=== PATIENT | female | born 1960 | race Caucasian/White ===

== ENCOUNTER 2020-01-13 10:31 | Emergency (ER) | payer MEDICARE, SELFPAY ==
[2020-01-13 10:31] VITALS: BP 133/76; PULSE 88; RESP 16; TEMP 37.8; O2SAT 96; BMI 24.0
[2020-01-13 10:35] VITALS: O2SAT 96
[2020-01-13 11:02] LABS: Absolute Lymphocyte Count 1.67 X10^3/uL (0.83-4.51); Absolute Neutrophil Count 5.7 X10^3/uL (2.0-7.7); Basophil# 0.07 X10^3/uL; Basophil% 0.8 % (0-1); Eosinophil# 0.06 X10^3/uL; Eosinophils% 0.7 % (0-5); Hematocrit 41.7 % (37-47); Hemoglobin 13.4 g/dL (12.0-15.0); Lymphocyte # 1.67 X10^3/ul (4.0); Lymphocyte % 19.6 % (19-41); Mean Corp Hgb Conc 32.1 g/dL (32-36); Mean Corpuscular Hgb 28.9 pg (27.0-32.0); Mean Corpuscular Volume 89.9 fL (81-99); Mean Platelet Vol. 9.7 fl (6.2-12.0); Monocyte# 1.05 X10^3/uL; Monocyte% 12.3 % (0-10); NRBC Flagged by Analyzer 0 % (0-5); Neutrophil # 5.66 X10^3/uL (2.7-7.7); Neutrophil % 66.2 % (47-70); Platelet Count 227 K/mm3 (150-450); RBC Distribution Width CV 12.5 % (11.6-14.6); RBC Distribution Width SD 41.2 fl (35.1-43.9); Red Blood Count 4.64 M/mm3 (4.2-5.4); White Blood Count 8.5 K/mm3 (4.4-11.0)
[2020-01-13 11:13] LABS: Anion Gap 6 (5-15); BUN 13 mg/dL (7-18); BUN/Creat Ratio 14.3 RATIO (10-20); Calcium,Total 8.8 mg/dL (8.5-10.1); Chloride 105 mmol/L (98-107); Creatinine, Serum 0.91 mg/dL (0.55-1.02); EST Glomerular Filtration Rate 67 mL/min (>60); Est Glom Filt Rate - Afr Amer 81 mL/min (>60); Estimated Creatinine Clearance 64.73 ml/min; Glucose 102 mg/dL (74-106); Potassium 3.9 mmol/L (3.5-5.1); Sodium Level 138 mmol/L (136-145)
[2020-01-13] MEDS: Ibuprofen 600 MG Tablet PO (11:23)
--- NOTE | 2020-01-13 11:38 | RAD_ITS ---
STUDY: X-RAY CHEST REASON FOR EXAM: Female, 59 years old. COUGH, FEVER, SOB; -- H/O CVA, H/O OVARIAN CA TECHNIQUE: Single AP portable view of the chest. COMPARISON: May 04, 2017 FINDINGS: There are monitoring devices. There is ill-defined peripheral opacity in the left mid chest. There is no demonstrated pleural abnormality. Normal size heart. Normal mediastinum and maria dolores. Normal visualized pulmonary arteries. Normal visualized aortic arch and descending thoracic aorta. Normal visualized thoracic spine. Normal visualized ribs, clavicles, and shoulders. There is no demonstrated abnormality of the visualized soft tissue structures of the upper abdomen. RAD/Chest 1 View (Portable) IMPRESSION: Left midlung pneumonia versus mass. Electronically Signed: Taran Goode MD at 11:59 EDT , Service support ,
--- NOTE | 2020-01-13 11:38 | ED.DCSUM_ITS ---
- ER Visit Summary Date of Service: 01/13/20 Chief Complaint: [Fever and cough] History of Present Illness: The patient is a 59 F [presents to the emergency department with 2-day history of headache and fever and dry cough. Patient denies any sore throat or body aches. Patient works as a hotel dining room cashier but denies any known exposures to novel coronavirus. She has had no travel. She denies urinary symptoms. Patient has had fever at home up to 100.8. Patient's past medical history includes prior stroke with some remnant weakness of the right arm. Patient complains of generalized fatigue.] Physical Examination: [HEENT-PERRLA, EOMI. Cranial nerves II through XII grossly intact. TMs clear. Mucous membranes moist. No adenopathy. Cardiovascular-regular rate and rhythm without murmur or ectopy Lungs-clear to auscultation, chest wall stable without crepitus or subcu emphysema Abdomen-normoactive bowel sounds, soft, nontender, no rebound or rigidity, no peritoneal signs. Extremities-intact ?4, normal range of motion, normal pulses, atraumatic] Test Results: [CBC with differential obtained was normal. Chemistries normal.] Influenza was negative. Chest x-ray showed a left midlung pneumonia versus mass. Emergency Department Course and Treatment: [She was treated with Levaquin 750 mg p.o. Given that testing for normal coronavirus is not available at this time to patient's being discharged I cannot rule out coronavirus as the etiology of her symptoms. Patient also advised that she will need follow-up imaging through her primary care physician regarding the left midlung pneumonia versus mass. Patient understands. Patient will be advised to return if increasing shortness of breath or condition worsen anyway.] Treatment Plan: [She advised to self isolate for 2 weeks. Patient to use ibuprofen or Tylenol for fever control. Patient advised to return if increasing shortness of breath. Patient will be treated with Levaquin to treat for possible bacterial pneumonia.] Disposition: [Discharged home in stable condition] Impression: [Pneumonia] This note was generated with [employer] software. It may contain incorrect words, spelling, and punctuation that were not noted in review of the chart prior to signing ED Disposition - Plan for ED Patient: Referrals: Ganesh Villatoro DO [Primary Care Provider] -
[2020-01-13 11:50] LABS: Bacteria 0 SEEN /hpf (None Seen); Mucous, Urine 0 SEEN /hpf (<or=2+); White Blood Cells 0 SEEN /hpf (0-5)
[2020-01-13 11:51] LABS: Color, Urine Yellow (Yellow); Glucose, Dipstick Normal (Normal); Ketone-Dipstick 15 mg/dl (Negative); Leukocyte Esterase-Dipstick 25 /ul (Negative); Nitrite-Dipstick Negative (Negative); Occult Blood-Urine 50 /ul (Negative); Protein-Dipstick Negative (Negative); Urine Bilirubin Dipstick Negative (Negative); Urine Clarity Clear (Clear); Urine Urobilinogen Normal (Normal)
[2020-01-13 11:59] LABS: Red Blood Cells-Urine 0-5 SEEN /hpf (0-5); Squamous Epithelial Cells - UA 0-5 SEEN /hpf (5-10)
--- NOTE | 2020-01-13 12:09 | ED.DEP ---
ED Disposition - Plan for ED Patient: Instructions: Pneumonia Prescriptions: Levofloxacin [Levaquin] 750 mg PO DAILY #7 tab Prescription Printed Referrals: Ganesh Villatoro DO [Primary Care Provider] - 1 Week
[2020-01-13 12:23] VITALS: BP 118/74; PULSE 67; RESP 15; O2SAT 97
[2020-01-13] MEDS: levoFLOXacin 750 MG Tablet PO (12:23)
== END 2020-01-13 12:24 | disposition home or self-care (01) ==
LOC: ED 11:09
PROVIDERS: Emergency Provider Emergency Medicine; PCP Family Medicine
DX: J18.9 Pneumonia, unspecified organism (principal); I69.351 Hemiplegia and hemiparesis following cerebral infarction affecting right dominant side; Z72.0 Tobacco use; Z79.82 Long term (current) use of aspirin; Z79.899 Other long term (current) drug therapy
CPT/HCPCS: 71045; 80048; 81001; 85025; 87040; 87633; 87804; 99285; A4216

== ENCOUNTER 2020-01-17 11:10 | Emergency (ER) | payer MEDICARE, SELFPAY ==
[2020-01-17 11:11] VITALS: BP 126/66; PULSE 103; RESP 19; TEMP 36.7; O2SAT 95; BMI 23.1
--- NOTE | 2020-01-17 11:30 | EKG12_ITS ---
Test Reason : SOB Blood Pressure : / mmHG Vent. Rate : 096 BPM Atrial Rate : 096 BPM P-R Int : 134 ms QRS Dur : 080 ms QT Int : 352 ms P-R-T Axes : 044 047 070 degrees QTc Int : 444 ms Normal sinus rhythm Normal ECG Confirmed by MADI DISLA, ILEANA ([id number]), assignment desk editor MIGUEL ESPINOZA ([id number]) on 01/23/2020 9:09:17 AM Referred By: BOO Confirmed By:FAIZA BARRAZA MD
--- NOTE | 2020-01-17 11:32 | CT_ITS ---
STUDY: CTA CHEST REASON FOR EXAM: Female, 59 years old. SOB, COUGH, NAUSEA X 5 DAYS RADIATION DOSAGE (If Supplied By Facility): CTDIvol = ( 9.62 ) mGy, DLP = ( 311.78 ) mGycm TECHNIQUE: The examination was performed with the intravenous administration of 100 CC ISOVUE 370. Post-processing of the angiographic images was performed, with multiplanar reformation and 3D reconstruction. Individualized dose optimization techniques were used for this CT. COMPARISON: None. FINDINGS: Normal enhancement of the main pulmonary artery and right and left pulmonary arteries. Normal enhancement of the bilateral peripheral pulmonary arteries. There is no demonstrated pulmonary embolism. Normal thoracic aorta and visualized great vessels. There is no demonstrated aortic dissection. Normal heart and pericardium. There are enlarged mediastinal lymph nodes. There are enlarged left hilar lymph nodes. Normal visualized trachea and bronchi. The lungs are well expanded. There is evidence of a 2 cm x 1.4 cm nodular density in the peripheral aspect of the left upper lobe abutting the pleural surface laterally in the major fissure posteriorly. Mild increased markings are seen in the anterior aspect of the right lower lobe abutting the right minor fissure. Normal pleura. Normal chest wall structures. Normal osseous structures. Normal visualized upper abdomen. CT/CTA Chest W/WO Contrast IMPRESSION: Enlarged mediastinal lymph nodes as well as the left hilar lymph nodes with a 2 cm x 1.4 cm peripheral based density in the lateral aspect of the left upper lobe abutting the pleural surface as well as the posterior aspect of the left major fissure. A neoplastic process should be ruled out. Electronically Signed: Pepe Baires, at 13:11 EDT , Service support ,
[2020-01-17] MEDS: INHALER, ASSIST DEVICES 1 EACH SPACER INHALATION (11:48)
--- NOTE | 2020-01-17 11:49 | ED.DCSUM_ITS ---
History of Present Illness Chief Complaint: Shortness of Breath Informant: Patient Narrative: Patient states that last she began to have headache and nausea and a chest discomfort described as a pressure that is sometimes sharp with breathing. She left work and on Wednesday came to the emergency department. She had a chest x-ray that was concerning for a left-sided pneumonia developing versus mass. She states that she has been on Levaquin since Wednesday and has not improved. She had a virtual visit with her doctor today and they suggested she come back to the emergency room. She states that she continues to have the shortness of breath and the chest pain. She states that she is drinking but still feels some dehydration. No fevers. She has a cough that is dry. Past Medical History - Allergies and Home Meds Allergies/Adverse Reactions: Allergies No Known Allergies Allergy (Verified 01/17/20 11:11) Primary Care Physician: Anu Ugarte,Out of [Primary Care Provider] - Surgical History: hysterectomy Smoking Status: Current every day smoker Review of Systems General: Reports: Malaise. Denies: Chills, Fever, Sweats Eyes: Denies: Visual changes - bilaterally, Diplopia ENT: Denies: Rhinorrhea, Sore throat Cardiovascular: Reports: Chest pain. Denies: Palpitations Respiratory: Reports: Dyspnea, Cough, Dyspnea on exertion. Denies: Sputum Gastrointestinal: Reports: Nausea. Denies: Abdominal pain, Vomiting, Diarrhea, Melena, Hematochezia Genitourinary: Denies: Dysuria, Hematuria, Frequency Musculoskeletal: Reports: Myalgias. Denies: Back pain, Extremity Pain Skin: Denies: Rash, Wounds Neurological: Reports: Headache. Denies: Weakness, Numbness Physical Exam Vital Signs/Narrative: Vital Signs Temp Pulse Resp BP Pulse Ox 01/17/20 11:11 98.1 F 103 H 19 H 126/66 H 95 General: Well nourished, Well developed, No Acute Distress Head: Normocephalic, Atraumatic Eyes: Perrl, EOMI ENT: No rhinorrhea, Dry mucous membranes Neck: Supple, Nontender Cardiovascular: Regular rate, No murmurs, Tachycardia Respiratory: No distress, CTA bilaterally, Chest nontender Abdomen: Soft, Nontender, Nondistended, Normal bowel sounds Back: Nontender, Normal Inspection Extremities: Nontender, No edema Skin: Normal color, No rash Neurological: Alert, Oriented x3, Cranial nerves II-XII grossly intact, Normal Strength, Normal Sensation Psychological: Tearful Diagnostic/Tx/Re-eval - Medical Decision Making Patient's basic labs are negative. EKG is a normal sinus rhythm at a rate of 96. CTA of the chest demonstrates no pneumonia. There is no concerning viral pattern. There is however a peripheral lung mass with enlarged mediastinal and left hilar nodes. I discussed the case with Dr. Martinez who will assist in helping arrange biopsy and further care. I called her primary care physician to update them. I will write for some Sunland for pain. This is obviously very distressing for the patient and she was already extremely anxious in light of the pandemic in her mother's health. I will write for some Ativan. ED Disposition - Plan for ED Patient: Disposition: Home or Assisted Living Diagnosis: Lung mass, Chest pain Instructions: ED Chest Pain NonCardiac, Diagnosing and Staging Lung Cancer Prescriptions: Lorazepam [Ativan] 0.5 mg PO TID PRN #9 tab PRN Reason: Anxiety Prescription Printed Hydrocodone Bitart/Apap 5-325 [Sunland 5MG-325MG] 1 tab PO Q6H PRN PRN 3 Days #12 tab PRN Reason: Pain Prescription Printed Referrals: Ilya Martinez MD [STAFF PHYSICIAN] - As soon as possible Additional Instructions: You may use the inhaler 2 puffs every 4 hours as needed for shortness of breath. You need to have a lung biopsy. Dr. Martinez's (a [facility] landscape painter) office will be in contact with you to help arrange this.
[2020-01-17 12:00] VITALS: BP 111/98; PULSE 98; PULSE 99; RESP 19; TEMP 36.7; O2SAT 95; O2SAT 96
[2020-01-17] MEDS: 0.9% Normal Saline 1,000 ML 1000 ML IV (12:05)
[2020-01-17 12:06] LABS: Absolute Lymphocyte Count 2.36 X10^3/uL (0.83-4.51); Absolute Neutrophil Count 5.9 X10^3/uL (2.0-7.7); Basophil# 0.05 X10^3/uL; Basophil% 0.5 % (0-1); Eosinophil# 0.08 X10^3/uL; Eosinophils% 0.9 % (0-5); Hematocrit 41.9 % (37-47); Hemoglobin 13.8 g/dL (12.0-15.0); Lymphocyte # 2.36 X10^3/ul (4.0); Lymphocyte % 25.7 % (19-41); Mean Corp Hgb Conc 32.9 g/dL (32-36); Mean Corpuscular Hgb 29.2 pg (27.0-32.0); Mean Corpuscular Volume 88.6 fL (81-99); Mean Platelet Vol. 9.1 fl (6.2-12.0); Monocyte% 7.6 % (0-10); NRBC Flagged by Analyzer 0 % (0-5); Neutrophil # 5.93 X10^3/uL (2.7-7.7); Neutrophil % 64.8 % (47-70); Platelet Count 277 K/mm3 (150-450); RBC Distribution Width CV 12.2 % (11.6-14.6); RBC Distribution Width SD 39.6 fl (35.1-43.9); Red Blood Count 4.73 M/mm3 (4.2-5.4); White Blood Count 9.2 K/mm3 (4.4-11.0)
[2020-01-17 12:08] VITALS: O2SAT 95
[2020-01-17 12:24] LABS: ALB/GLOB Ratio 0.8 RATIO (0.9-2.4); AST(SGOT) 20 U/L (15-37); Alanine Aminotransfer ALT/SGPT 40 U/L (13-56); Albumin, Serum 3.3 g/dL (3.2-5.0); Alkaline Phosphatase 109 U/L (45-117); Anion Gap 7 (5-15); BUN 13 mg/dL (7-18); BUN/Creat Ratio 13.1 RATIO (10-20); Calcium,Total 8.7 mg/dL (8.5-10.1); Chloride 102 mmol/L (98-107); EST Glomerular Filtration Rate 61 mL/min (>60); Est Glom Filt Rate - Afr Amer 73 mL/min (>60); Estimated Creatinine Clearance 58.91 ml/min; Glucose 89 mg/dL (74-106); Potassium 3.4 mmol/L (3.5-5.1); Protein, Total 7.3 g/dL (6.4-8.2); Sodium Level 137 mmol/L (136-145)
[2020-01-17 13:00] VITALS: BP 164/110; PULSE 94; RESP 19; TEMP 36.7; O2SAT 98
--- NOTE | 2020-01-17 13:33 | NURSING ---
LEFT MESSAGE ON [facility]. DR GANT WANTS TO TALK TO HER DOCTOR
== END 2020-01-17 14:10 | disposition home or self-care (01) ==
PROVIDERS: Emergency Provider Emergency Medicine
DX: R91.8 Other nonspecific abnormal finding of lung field (principal); R07.89 Other chest pain; R51 Headache; R11.0 Nausea; F17.200 Nicotine dependence, unspecified, uncomplicated; Z79.82 Long term (current) use of aspirin; Z79.899 Other long term (current) drug therapy
CPT/HCPCS: 71275; 80053; 83605; 84484; 85025; 85610; 85730; 93005; 94640; 96360; 99284; J7030; Q9967; A4216

== ENCOUNTER → 2020-01-23 10:41 | Outpatient (CLI) | payer MEDICARE, SELFPAY ==
[2020-01-19 13:33] VITALS: BMI 23.1
[2020-01-23 12:22] LABS: Anion Gap 5 (5-15); BUN 19 mg/dL (7-18); BUN/Creat Ratio 18.1 RATIO (10-20); Calcium,Total 9.5 mg/dL (8.5-10.1); Chloride 103 mmol/L (98-107); Creatinine, Serum 1.05 mg/dL (0.55-1.02); EST Glomerular Filtration Rate 57 mL/min (>60); Est Glom Filt Rate - Afr Amer 69 mL/min (>60); Glucose 107 mg/dL (74-106); Sodium Level 139 mmol/L (136-145)
== END ==
PROVIDERS: PCP Student in an Organized Health Care Education/Training Program; Referring Provider Student in an Organized Health Care Education/Training Program; Visit Provider Student in an Organized Health Care Education/Training Program
DX: E87.6 Hypokalemia (principal); R11.0 Nausea
CPT/HCPCS: 36415; 80048

== ENCOUNTER → 2020-03-19 13:06 | Outpatient (CLI) | payer MEDICARE, SELFPAY ==
[2020-01-19 13:33] VITALS: BMI 23.1
--- NOTE | 2020-03-21 08:13 | PFT ---
INTRODUCTION: The patient is a 59-year-old female that presents for pulmonary function studies secondary to a diagnosis of dyspnea. Respiratory therapy reports good patient effort. Bronchodilators were used during testing. INTERPRETATION: Forced expiration spirometry demonstrates no evidence of a large airways obstructive ventilatory defect. There was no significant response to aerosolized bronchodilators. Spirograms are of good quality and plateau normally. Body plethysmography was performed and reveals lung volumes to be within normal limits. Diffusing capacity by single breath CO is also within normal limits. IMPRESSION: Grossly normal pulmonary function studies.
--- OUTSIDE RECORDS SUMMARY | 2020-07-21 14:21 | XMS RPT_ITS | CCD ---
:1960 External Reference #:[id number] Author Organization [facility] Care Team Providers Name Role Phone Unavailable Unavailable Unavailable Results Result Name Value Range Unit Interpretation Flag Date Location tsh on 2020-04-30 TSH Qn 2.15 0.36-3.74 mcIU/mL Normal 04-30-2020 [facility] ([place]) ([address]39) Comment: Performed By: #### CMP, GFR #### [place] [address] #### CBC, ADIFF, ANEU #### [address] [address] ft4 on 2020-04-30 Free T4 [Mass/Vol] 1.08 0.76-1.46 ng/dL Normal 04-30-2020 [facility] ([place]) (0000 0) Comment: Performed By: #### CMP, GFR #### [place] [address] #### CBC, ADIFF, ANEU #### [address] [address] cmp on 2020-04-30 Albumin [Mass/Vol] 3.8 3.5-5.0 G/dL Normal 04-30-2020 [facility] ([place]) ([address]) Comment: Performed By: #### CMP, GFR #### [place] [address] #### CBC, ADIFF, ANEU #### [address] [address] Albumin/Globulin [Mass 1.3 1.1-2.5 ratio Normal 020 [facility] ([place]) (78965) Comment: Performed By: #### CMP, GFR #### [place] [address] #### CBC, ADIFF, ANEU #### [address] [address] ALP [Catalytic activity/Vol] 103 40-135 U/L Normal 0 04-30-2020 [facility] ([place]) ([address]308) Comment: Performed By: #### CMP, GFR #### [place] [address] #### CBC, ADIFF, ANEU #### [address] [address] ALT [Catalytic activity/Vol] 26 10-35 U/L Normal 0 04-30-2020 [facility]) (0000 0) Comment: Performed By: #### CMP, GFR #### [place] [address] #### CBC, ADIFF, ANEU #### [address] [address] AST [Catalytic activity/Vol] 15 10-40 U/L Normal 0 04-30-2020 [facility] ([place]) (0000 0) Comment: Performed By: #### CMP, GFR #### [place] [address] #### CBC, ADIFF, ANEU #### [address] [address] Bili Total 0.3 0.2-1.0 mg/dL Normal 04-30-2020 [facility] ([place]) ([address]) Comment: Result Comment: Use of this assay is not recommended for patients undergoing treatment with eltrombopag d ue to the potential for falsely elevated results. Performed By: #### CMP, GFR #### [place] [address] #### CBC, ADIFF, ANEU #### [address] [address] Calcium [Mass/Vol] 9.4 8.4-10.2 mg/dL Normal 04-30-2020 [facility] ([place]) (0000 0) Comment: Performed By: #### CMP, GFR #### [address] [address] #### CBC, ADIFF, ANEU #### [address] [address] Chloride [Moles/Vol] 107 98-107 mmol/L Normal 0 [facility] ([place]) (0000 0) Comment: Performed By: #### CMP, GFR #### [place] [address] #### CBC, ADIFF, ANEU #### [address] [address] CO2 [Moles/Vol] 28 22-29 mmol/L Normal 04-30-2020 [facility] ([place]) (73995) Comment: Performed By: #### CMP, GFR #### [place] [address] #### CBC, ADIFF, ANEU #### [address] [address] Creatinine [Mass/Vol] 0.97 0.55-1.02 mg/dL Normal 04-30-20 20 [facility] ([place]) ([address]) Comment: Performed By: #### CMP, GFR #### [place] [address] #### CBC, ADIFF, ANEU #### [address] [address] Electrolyte Balance 9.0 mEq/L Normal 04-30-2020 [facility] ([place]) ([address]120) Comment: Performed By: #### CMP, GFR #### [place] [address] #### CBC, ADIFF, ANEU #### [address] [address] Globulin (S) [Mass/Vol] 2.9 G/dL Normal 2019 [facility] ([place]) ([address]16) Comment: Performed By: #### CMP, GFR #### [address] [address] #### CBC, ADIFF, ANEU #### [address] [address] Glucose [Mass/Vol] 75 70-105 mg/dL Normal 04-30-2020 [facility] ([place]) ([address]08) Comment: Performed By: #### CMP, GFR #### [place] [address] #### CBC, ADIFF, ANEU #### [address] [address] Potassium [Moles/Vol] 4.2 3.5-5.1 mmol/L Normal 04-30-20 [facility] ([place]) (0000 0) Comment: Performed By: #### CMP, GFR #### [place] [address] #### CBC, ADIFF, ANEU #### [address] [address] Protein [Mass/Vol] 6.7 6.4-8.2 G/dL Normal 04-30-2020 [facility] ([place]) (16029) Comment: Performed By: #### CMP, GFR #### [place] [address] #### CBC, ADIFF, ANEU #### [address] [address] Sodium [Moles/Vol] 144 136-145 mmol/L Normal 04-30-2020 [facility] ([place]) (0000 0) Comment: Performed By: #### CMP, GFR #### [place] [address] #### CBC, ADIFF, ANEU #### [address] [address] Urea nitrogen [Mass/Vol] 15 7-18 mg/dL Normal 04-30 [facility] ([place]) (0000 0) Comment: Performed By: #### CMP, GFR #### [address] [address] #### CBC, ADIFF, ANEU #### [address] [address] Urea nitrogen/Creatinine [Mass 15 7-27 ratio Normal 04-30-2020 [facility]] [facility] ([place]) ([address]) Comment: Performed By: #### CMP, GFR #### [place] [address] #### CBC, ADIFF, ANEU #### [address] [address] a1c on 2020-04-30 HbA1c (Bld) [Mass 5.6 4.3-6.4 % Normal 04-30-2020 A [facility] fraction] ([place]) (0000 0) Comment: Performed By: #### CMP, GFR #### [place] [address] #### CBC, ADIFF, ANEU #### [address] [address] .gfr on 2020-04-30 GFR 71 ml/min/1.73sqm Normal 04-04 [facility] ([place]) (0000 0) Comment: Result Comment: GFR Population mean for Afri can Ugandan, Non- Americans Ages 20-29 = 116 mL/min/1.73 sq.m. Ages 30-39 = 107 mL/min/1.73 sq.m. Ages 40-49 = 99 mL/min/1.73 sq.m. Ages 50-59 = 93 mL/min/1.73 sq.m. Ages 60-69 = 85 mL/min/1.73 sq.m. Ages 70+ = 75 mL/min/1.73 sq .m. Chronic Kidney Disease: Less than 60 mL/min/1.73 square meters End Stage Renal Disease: Les s than 15 mL/min/1.73 square meters Performed By: #### CMP, GFR #### [place] [address] #### CBC, ADIFF, ANEU #### [address] [address] GFR Non- 59 ml/min/1.73sqm Normal 04-30-2020 [facility] ([place]) (81193) Comment: Result Comment: GFR Population mean for Afri can Ugandan, Non- Americans Ages 20-29 = 116 mL/min/1.73 sq.m. Ages 30-39 = 107 mL/min/1.73 sq.m. Ages 40-49 = 99 mL/min/1.73 sq.m. Ages 50-59 = 93 mL/min/1.73 sq.m. Ages 60-69 = 85 mL/min/1.73 sq.m. Ages 70+ = 75 mL/min/1.73 sq .m. Chronic Kidney Disease: Less than 60 mL/min/1.73 square meters End Stage Renal Disease: Les s than 15 mL/min/1.73 square meters Performed By: #### CMP, GFR #### [facility] [address] [place] [address] #### CBC, ADIFF, ANEU #### [address] [address] hemogram on 2020-01 Erythrocyte distribution 12.9 11.5-14.5 % Normal 01-29 [facility] width (RBC) [Ratio] (99653) Comment: Performed By: #### HEMOG, BM P3M ####[facility] [employer] [address] [place] [address] Hematocrit (Bld) [Volume 32.3 35.0-47.0 % Low 01-29 [facility] fraction] (90155) Comment: Performed By: #### HEMOG, BM P3M ####[facility] [employer] [address] [place] [address] Hemoglobin (Bld) [Mass/Vol] 11.0 11.7-16.0 g/dL Low [facility] (24520) Comment: Performed By: #### HEMOG, BM P3M ####[facility] [employer] [address] [place] [address] MCH (RBC) [Entitic mass] 29.7 26.0-34.0 pg Normal 01-29 [facility] (48983) Comment: Performed By: #### HEMOG, BM P3M ####[facility] [address] [place], [place] MCHC (RBC) [Mass/Vol] 34.1 32.0-36.0 % Normal 01-30-20 20 [facility] (32189) Comment: Performed By: #### HEMOG, BM P3M ####[place] [address] [place], [place] MCV (RBC) [Entitic vol] 87.0 79.0-98.0 fL Normal 2019 [facility] (56051) Comment: Performed By: #### HEMOG, BM P3M ####[place] [address] [place], [place] Platelet mean volume (Bld) 7.7 7.4-10.4 fL Normal [facility] [Entitic vol] (48409 ) Comment: Performed By: #### HEMOG, BM P3M ####[place] [address] [place], [place] Platelets (Bld) [#/Vol] 388 140-440 10*3/uL Normal 2019 [facility] (71485) Comment: Performed By: #### HEMOG, BM P3M ####[place] [address] [place], [place] RBC (Bld) [#/Vol] 3.71 3.80-5.20 10*6/uL Low 01-30-2020 [facility] (75190) Comment: Performed By: #### HEMOG, BM P3M ####[facility] [address] [place], [place] WBC (Bld) [#/Vol] 15.7 3.6-10.7 10*3/uL High 01-30-2020 [facility] (98716) Comment: Performed By: #### HEMOG, BM P3M ####[place] [address] [place], [place] basic metabolic panel on 2020-01-30 Calcium [Mass/Vol] 8.6 8.4-10.4 mg/dL Normal 01-30-2020 [facility] (03060) Comment: Performed By: #### TEJ BM P3M ####[facility] [employer] [address] [place], [place] Anion gap [Moles/Vol] 7 Normal 01-30-20 [facility] (66888) Comment: Performed By: #### HEMOG BM P3M ####[facility] [employer] [address] [place], [place] CO2 [Moles/Vol] 27 22-30 mmol/L Normal 01-30-2020 [facility] (71299) Comment: Performed By: #### HEMMUSTAPHA BM P3M ####[facility] [employer] [address] [place], [place] Creatinine [Mass/Vol] 0.72 0.52-1.25 mg/dL Normal 01-30-20 [facility] (27930) Comment: Performed By: #### HEMMUSTAPHA BM P3M ####[facility] [employer] [place], [place] GFR/1.73 sq M > 60.0 >60 mL/min/{1.73_m2} Normal 0 [facility] predicted among Syst em (55912) blacks MDRD (S/P/Bld) [Vol rate/Area] Comment: Performed By: #### HEMOG BM P3M ####[facility] [employer] [address] [place], [place] GFR/1.73 sq M > 60.0 >60 mL/min/{1.73_m2} Normal 0 [facility] predicted among Syst em (65089) non-blacks MDRD (S/P/Bld) [Vol rate/Area] Comment: Result Comment: Source- MDRD equation with creatinine calibration to IDMS(NKDEP) eGFR not recommended for sharon g dose adjustment Performed By: #### HEMOG, BM P3M ####[facility] [employer] [address] [place], [place] Glucose [Mass/Vol] 146 70-100 mg/dL High 01-30-2020 [facility] (90594) Comment: Performed By: #### HEMOG, BM P3M ####[facility] [employer] [address] [place], [place] Urea nitrogen [Mass/Vol] 17 7-20 mg/dL Normal 01-29 [facility] (58062) Comment: Performed By: #### HEMOG, BM P3M ####[facility] [employer] [address] [place], [place] Chloride [Moles/Vol] 102 98-107 mmol/L Normal 0 [facility] (78009) Comment: Performed By: #### HEMOG, BM P3M ####[facility] [employer] [address] [place], [place] Potassium [Moles/Vol] 3.9 3.5-5.1 mmol/L Normal 01-30-20 20 [facility] (13014) Comment: Result Comment: Slightly hem olysed, interpret with caution. Performed By: #### HEMOG, BM P3M ####[facility] [employer] [address] [place], [place] Sodium [Moles/Vol] 136 135-145 mmol/L Normal 01-30-2020 [facility] (80089) Comment: Performed By: #### HEMOG, BM P3M ####[facility] [employer] [address] [place], [place] hemogram on 2020-01 Erythrocyte distribution 13.4 11.5-14.5 % Normal 01-28 [facility] width (RBC) [Ratio] (20644) Comment: Performed By: #### HEMOG, BM P3M ####[facility] [employer] [address] [place], [place] Hematocrit (Bld) [Volume 35.9 35.0-47.0 % Normal 01-28 [facility] fraction] (81745) Comment: Performed By: #### HEMOG, BM P3M ####[facility] [employer] [address] [place], [place] Hemoglobin (Bld) 12.1 11.7-16.0 g/dL Normal 01-29-2020 [facility] [Mass/Vol] (69351) Comment: Performed By: #### HEMMUSTAPHA BM P3M ####[place] [address] [place], [place] MCH (RBC) [Entitic mass] 29.4 26.0-34.0 pg Normal 01-28 [facility] (57096) Comment: Performed By: #### HEMOG BM P3M ####[place] [address] [place], [place] MCHC (RBC) [Mass/Vol] 33.7 32.0-36.0 % Normal 01-29-20 20 [facility] (54521) Comment: Performed By: #### HEMMUSTAPHA BM P3M ####[address] MCV (RBC) [Entitic vol] 87.2 79.0-98.0 fL Normal 2019 [facility] (24706) Comment: Performed By: #### HEMMUSTAPHA BM P3M ####[address] Platelet mean volume (Bld) 7.4 7.4-10.4 fL Normal [facility] [Entitic vol] (93284 ) Comment: Performed By: #### HEMOG BM P3M ####[address] Platelets (Bld) [#/Vol] 414 140-440 10*3/uL Normal 2019 [facility] (60371) Comment: Performed By: #### HEMOG BM P3M ####[address] RBC (Bld) [#/Vol] 4.12 3.80-5.20 10*6/uL Normal 01-29-2020 [facility] (88973) Comment: Performed By: #### HEMOG BM P3M ####[address] [place] [address] WBC (Bld) [#/Vol] 12.5 3.6-10.7 10*3/uL High 01-29-2020 [facility] (68948) Comment: Performed By: #### FELICIA BURNHAM P3M ####[facility] [employer] [address] [address] cr ankle 3+ views right on 2020-01-29 CR Ankle 3+ Views Patient Name: ALEX GARCIA Normal 01-29-2020 [facility] Right ([id number] ) Diagnostic Radiology Exam Date/Time 01/29/2020 12:32:43 EDT Exam CR Ankle 3+ Views Right Ordering Physician MD ROVERTO, ISA Burciaga Accession Number [id number] CPT4 Codes 45168 () Reason For Exam postop ORIF Report Right ankle: 01/29/2020. CLINICAL INFORMATION: Status post open reduction, internal f ixation. FINDINGS: Three views of the right ankle were compared to the prior st udy 01/27/2020. An orthopedic plate and screw device is now stabilizing the previously described comminuted spiral fracture of the distal fibular d iaphysis. The overall position and alignment is reasonable. An orthope dic plate and screw device and two orthopedic screws are stabilizing t he previously described oblique fracture of the medial malleolu s and posterior malleolus. The overall position and alignment is r easonable. The ankle mortise is intact. An overlying plaster splint obs cures bony detail. Report Dictated on Workstation: [id number] Final Dictated: 01/29/2020 12:32 pm Dictating Physician: MD BELL RISA Signed Date and Time: 01/29/2020 12:33 pm Signed by: MD BELL RISA Transcribed Date and Time: 01/29/2020 12:32 basic metabolic panel on 2020-01-29 Calcium [Mass/Vol] 8.5 8.4-10.4 mg/dL Normal 01-29-2020 [facility] (23660) Comment: Performed By: #### FELICIA BURNHAM P3M ####[employer] [address] [place], [place] Glucose [Mass/Vol] 113 70-100 mg/dL High 01-29-2020 [facility] (62015) Comment: Performed By: #### HEMOG BM P3M ####[facility] [employer] [address] [facility] [place] Anion gap [Moles/Vol] 7 Normal 01-29-20 [facility] (05370) Comment: Performed By: #### HEMOG BM P3M ####[facility] [employer] [address] [facility], [place] CO2 [Moles/Vol] 26 22-30 mmol/L Normal 01-29-2020 [facility] (57660) Comment: Performed By: #### HEMMUSTAPHA BM P3M ####[facility] [employer] [address] Creatinine [Mass/Vol] 0.87 0.52-1.25 mg/dL Normal 01-29-20 [facility] (65913) Comment: Performed By: #### HEMOG BM P3M ####[facility] [employer] [address] [place], [place] GFR/1.73 sq M > 60.0 >60 mL/min/{1.73_m2} Normal 0 [facility] predicted among Syst em (36389) blacks MDRD (S/P/Bld) [Vol rate/Area] Comment: Performed By: #### HEMOG, BM P3M ####[facility] [employer] [address] [place], [place] GFR/1.73 sq M > 60.0 >60 mL/min/{1.73_m2} Normal 0 [facility] predicted among Syst em (13433) non-blacks MDRD (S/P/Bld) [Vol rate/Area] Comment: Result Comment: Source- MDRD equation with creatinine calibration to IDMS(NKDEP) eGFR not recommended for sharon g dose adjustment Performed By: #### HEMOG, BM P3M ####[facility] [employer] [address] [place], [place] Urea nitrogen [Mass/Vol] 14 7-20 mg/dL Normal 01-28 [facility] (88463) Comment: Performed By: #### HEMOG BM P3M ####[facility] [employer] [address] [place], [place] Chloride [Moles/Vol] 100 98-107 mmol/L Normal 0 [facility] (73371) Comment: Performed By: #### HEMOG BM P3M ####[facility] [employer] [address] [place], [place] Potassium [Moles/Vol] 3.6 3.5-5.1 mmol/L Normal 01-29-20 20 [facility] (35287) Comment: Performed By: #### HEMOG BM P3M ####[place] [address] [place], [place] Sodium [Moles/Vol] 133 135-145 mmol/L Low 01-29-2020 [facility] (53652) Comment: Performed By: #### HEMOG BM P3M ####[facility] [employer] [place] [address] [place], [place] procalcitonin on 21-01-26 Procalcitonin < 0.10 <0.10 Normal 01-28-2020 [facility] (08837) Comment: Performed By: #### HEMOG, PT , BMP3, PCAL #### [facility] [employer] [place] [address] [address] [place], [place] Interpretation See Below Normal 01-28-2020 [facility] (12622) Comment: Result Comment: PCT <0.50 = Low risk of severe sepsis and/or septic shock. PCT >2.00 = High risk of sev ere sepsis and/or septic shock. Performed By: #### HEMOG, PT , BMP3, PCAL #### [place] [address] [address] [place], [place] hemogram on 2020-01 Erythrocyte distribution 13.4 11.5-14.5 % Normal 01-27 [facility] width (RBC) [Ratio] (30337) Comment: Performed By: #### HEMOG BM P3M #### [facility] [address] [place], [place] Hematocrit (Bld) [Volume 40.8 35.0-47.0 % Normal 01-27 [facility] fraction] (41610) Comment: Performed By: #### HEMOG BM P3M #### [place] [address] [address] [place], [place] Hemoglobin (Bld) 13.3 11.7-16.0 g/dL Normal 01-28-2020 [facility] [Mass/Vol] (14429) Comment: Performed By: #### HEMOG BM P3M #### [place] [address] [address] [place], [place] MCH (RBC) [Entitic mass] 29.3 26.0-34.0 pg Normal 01-27 [facility] (17994) Comment: Performed By: #### HEMOG BM P3M #### [place] [address] [address] [place], [place] MCHC (RBC) [Mass/Vol] 32.6 32.0-36.0 % Normal 01-28-20 20 [facility] (54801) Comment: Performed By: #### HEMOG BM P3M #### [place] [address] [address] [place] MCV (RBC) [Entitic vol] 90.0 79.0-98.0 fL Normal 2019 [facility] (02200) Comment: Performed By: #### HEMOG BM P3M #### [place] [address] [address] [place], [place] Platelet mean volume (Bld) 7.0 7.4-10.4 fL Low [facility] [Entitic vol] (71951 ) Comment: Performed By: #### HEMOG BM P3M #### [place] [address] [address] [place], [place] Platelets (Bld) [#/Vol] 404 140-440 10*3/uL Normal 2019 [facility] (38435) Comment: Performed By: #### HEMOG, BM P3M #### [facility] [address] [place], [place] RBC (Bld) [#/Vol] 4.54 3.80-5.20 10*6/uL Normal 01-28-2020 [facility] (29662) Comment: Performed By: #### HEMOG, BM P3M #### [facility] [address] [place], [place] WBC (Bld) [#/Vol] 13.9 3.6-10.7 10*3/uL High 01-28-2020 [facility] (58325) Comment: Performed By: #### HEMOG, BM P3M #### [facility] [address] [place], [place] ct low ext w/o contrast right on 2020-01-28 CT Low Ext w/o Patient Name: ALEX GARCIA No rmal 01-28-2020 [facility] Contrast Right S yste ([id number]) CT Exam Date/Time 01/27/2020 22:23:[address] Low Ext w/o Contrast Right Ordering Physician MD DYKES KATHERINE Accession Number [id number] CPT4 Codes 75691 () Reason For Exam R trimal fx/dx, s/p reduction Report CT Low Ext w/o Contrast Right CLINICAL INDICATION: R trimal fx/dx, s/p reduction TECHNIQUE: CT scan of the right ankle. No contrast. Multipla parminder reformations. I personally generated 3-D reconstructions on a separate workstation. COMPARISON: X-rays from earlier today FINDINGS: Displaced, comminuted oblique fracture of the distal fibular diaphysis and metaphysis. Improved alignment compared to the prior x-r ays. Improved alignment of comminuted posterior malleolar fractur e and medial malleolar fracture compared to the prior study. Signi ficant joint incongruity at the posterior malleolar fracture site. One of the fragments within the fracture line is rotated and elevated s uperiorly by about 10 mm. Talar dome is intact. Reduction of previousl y seen subtalar dislocation. IMPRESSION: 1. Reduction of previously seen subtalar dislocation. Improv ed alignment of distal fibular, medial malleolar, and posterior malleolar fractures. Significant joint incongruity at posterior malleo lar fracture site. Report Dictated on Final Dictated: 01/27/2020 10:28 pm Dictating Physician: MD SPAIN JOHN R Signed Date and Time: 01/27/2020 10:36 pm Signed by: MD SPAIN JOHN R Transcribed Date and Time: 01/27/2020 10:28 basic metabolic panel on 2020-01-28 Calcium [Mass/Vol] 8.5 8.4-10.4 mg/dL Normal 01-28-2020 [facility] (04592) Comment: Performed By: #### HEMOG, BM P3M ####[facility] [employer] [employer] [facility] [place] [address] Glucose [Mass/Vol] 79 70-100 mg/dL Normal 01-28-2020 [facility] (65682) Comment: Performed By: #### HEMOG, BM P3M ####[employer] [place] [address] Urea nitrogen [Mass/Vol] 17 7-20 mg/dL Normal 01-27 [facility] (90666) Comment: Performed By: #### HEMOG, BM P3M ####[facility] [employer] [address] Anion gap [Moles/Vol] 8 Normal 01-28-20 [facility] (77373) Comment: Performed By: #### HEMOG, BM P3M ####[employer] [place] [address] CO2 [Moles/Vol] 23 22-30 mmol/L Normal 01-28-2020 [facility] (03512) Comment: Performed By: #### HEMOG, BM P3M ####[facility] [employer] [place] [address] Creatinine [Mass/Vol] 0.87 0.52-1.25 mg/dL Normal 01-28-20 [facility] (01513) Comment: Performed By: #### HEMOG, BM P3M ####[employer] [place] [address] GFR/1.73 sq M > 60.0 >60 mL/min/{1.73_m2} Normal 0 [facility] predicted among Syst em (07263) blacks MDRD (S/P/Bld) [Vol rate/Area] Comment: Performed By: #### HEMOG, BM P3M ####[employer] [place] [address] GFR/1.73 sq M > 60.0 >60 mL/min/{1.73_m2} Normal 0 [facility] predicted among Syst em (36585) non-blacks MDRD (S/P/Bld) [Vol rate/Area] Comment: Result Comment: Source- MDRD equation with creatinine calibration to IDMS(NKDEP) eGFR not recommended for shaorn g dose adjustment Performed By: #### HEMOG, BM P3M ####[employer] [place] [address] Potassium [Moles/Vol] 3.8 3.5-5.1 mmol/L Normal 01-28-20 20 [facility] (43340) Comment: Performed By: #### HEMOG, BM P3M ####[employer] [place] [address] Chloride [Moles/Vol] 107 98-107 mmol/L Normal 0 [facility] (89615) Comment: Performed By: #### HEMOG, BM P3M ####[employer] [place] [address] Sodium [Moles/Vol] 139 135-145 mmol/L Normal 01-28-2020 [facility] [employer] (13551) Comment: Performed By: #### HEMOG, BM P3M ####[employer] [place] [address] add on test from his on 2020-01-28 Add on test from HIS Accepted Normal 0 [facility] (68436) Comment: Result Comment: Specimen christi ilable & acceptable for analysis. Performed By: #### ADDON ### #[facility] [place] ts gel on 2020-01-04 TS GEL ABO Group: Normal 01-27-2020 [facility] (26417) B Rh, Gel: POS Antibody Screen Gel: NEG Comment: Performed By: #### TSGL #### [facility] [address] [place], [place] [facility] prothrombin time on 2020-01-27 INR Coag (PPP) [Relative 1.0 0.9-1.1 Normal 01-26 [facility] time] ([id number]) Comment: Result Comment: Recommended Anticoagulant Therapy: SEE BELOW ----- INR of 2.0 - 3.0 : - Prophylaxis of Venous Thro mbosis (high-risk surgery) - Treatment of Venous Thromb osis - Treatment of Pulmonary Emb olism (Includes tissue heart valves, Acute Myocardial Inf arction to prevent systemic embolism, Valvular Heart Dis ease, and Atrial Fibrillation) ----- INR of 2.5 - 3.5 : - Mechanical Prosthetic Valv es (high risk) - If oral anticoagulant ther apy is used to prevent Myocardial Infarction Performed By: #### HEMOG, PT , BMP3, PCAL #### [facility] [address] [place], [place] PT Coag (PPP) [Time] 10.8 9.0-12.0 s Normal 0 [facility] (08803) Comment: Result Comment: . Performed By: #### HEMOG, PT , BMP3, PCAL #### [facility] [address] [place], [place] hemogram on 2020-01 Erythrocyte distribution 13.3 11.5-14.5 % Normal 01-26 [facility] width (RBC) [Ratio] ([id number]) Comment: Performed By: #### HEMOG, PT , BMP3, PCAL #### [facility] [address] [place], [place] Hematocrit (Bld) [Volume 36.9 35.0-47.0 % Normal 01-26 [facility] fraction] ([id number]) Comment: Performed By: #### HEMOG, PT , BMP3, PCAL #### [place] [address] [place], [place] Hemoglobin (Bld) 12.6 11.7-16.0 g/dL Normal 01-27-2020 [facility] [Mass/Vol] (68326) Comment: Performed By: #### HEMOG, PT , BMP3, PCAL #### [place] [address] [place], [place] MCH (RBC) [Entitic mass] 29.6 26.0-34.0 pg Normal 01-26 [facility] (47136) Comment: Performed By: #### HEMOG, PT , BMP3, PCAL #### [place] [address] [place], [place] MCHC (RBC) [Mass/Vol] 34.2 32.0-36.0 % Normal 01-27-20 20 [facility] ([id number]) Comment: Performed By: #### HEMOG, PT , BMP3, PCAL #### [place] [address] [place], [place] MCV (RBC) [Entitic vol] 86.6 79.0-98.0 fL Normal 2019 [facility] (01421) Comment: Performed By: #### HEMOG, PT , BMP3, PCAL #### [place] [address], [place] Platelet mean volume (Bld) 7.6 7.4-10.4 fL Normal [facility] [Entitic vol] ([id number] ) Comment: Performed By: #### HEMOG, PT , BMP3, PCAL #### [place] [address], [place] Platelets (Bld) [#/Vol] 456 140-440 10*3/uL High 2019 [facility] ([id number]) Comment: Performed By: #### HEMOG, PT , BMP3, PCAL #### [facility] [address] [place], [place] RBC (Bld) [#/Vol] 4.25 3.80-5.20 10*6/uL Normal 01-27-2020 [facility] ([id number]) Comment: Performed By: #### HEMOG, PT , BMP3, PCAL #### [facility] [address] [place], [place] WBC (Bld) [#/Vol] 11.2 3.6-10.7 10*3/uL High 01-27-2020 [facility] ([id number]) Comment: Performed By: #### HEMOG, PT , BMP3, PCAL #### [facility] [address] [place], [place] cr tibia/fibula 2 views right on 2020-01-27 CR Tibia/Fibula 2 Patient Name: ALEX GARCIA Normal 01-27-2020 [facility] Views Right Syst em ([id number]) Diagnostic Radiology Exam Date/Time 01/27/2020 20:43:33 EDT Exam CR Tibia/Fibula 2 Views Right Ordering Physician MD MARTHA, ANT Arias Accession Number [id number] CPT4 Codes 36489 () Reason For Exam r ankle fx/dislocation Report CR Tibia/Fibula 2 Views Right, CR Ankle 3+ Views Right CLINICAL INDICATION: r ankle fx/dislocation TECHNIQUE: Two view right tibia and fibula, three view right ankle COMPARISON: None FINDINGS: Proximal tibia and fibula appear intact. Comminuted fracture of the distal fibular shaft, with apex m edial angulation. Displaced fracture of the medial malleolus, and displaced posterior malleolar fracture. Subtalar dislocation, talus is posterior and lateral to the tibial plafond. IMPRESSION: 1. Subtalar dislocation. Medial and posterior malleolar frac tures, distal fibular shaft fracture. Report Dictated on Final Dictated: 01/27/2020 8:40 pm Dictating Physician: MD SPAIN JOHN R Signed Date and Time: 01/27/2020 8:43 pm Signed by: MD SPAIN JOHN R Transcribed Date and Time: 01/27/2020 8:40 cr chest 1 view frontal on 2020-01-27 CR Chest 1 View Patient Name: ALEX GARCIA 01-27-2020 [facility] Frontal ([id number] ) Diagnostic Radiology Exam Date/Time 01/27/2020 21:54:47 EDT Exam CR Chest 1 View Frontal Ordering Physician MD THANH, ANTONI Accession Number [id number] CPT4 Codes 86780 () Reason For Exam recent penumonia Report SINGLE FRONTAL VIEW OF THE CHEST CLINICAL INDICATION: recent penumonia TECHNIQUE: Single frontal view of the chest COMPARISON: None FINDINGS: Limited study from low lung volumes. Also, supine technique. Mild vascular congestion could be technical. Heart size normal. N o pneumothorax or pleural effusion seen. Minor infiltrate or a telectasis left lung base. IMPRESSION: 1. Minor infiltrate or atelectasis left lung base. Mild vasc ular congestion which could be technical. Follow-up recommended. Report Dictated on Final Dictated: 01/27/2020 9:57 pm Dictating Physician: MD SPAIN JOHN R Signed Date and Time: 01/27/2020 9:58 pm Signed by: MD SPAIN JOHN R Transcribed Date and Time: 01/27/2020 9:57 cr ankle 3+ views right on 2020-01-27 CR Ankle 3+ Views Patient Name: ALEX GARCIA 01-27-2020 [facility] Right ([id number] ) Diagnostic Radiology Exam Date/Time 01/27/2020 20:43:33 EDT Exam CR Ankle 3+ Views Right Ordering Physician MD THOMAS NICHOLAS E. Accession Number [id number] CPT4 Codes 69881 () Reason For Exam fx/dislocation Report CR Tibia/Fibula 2 Views Right, CR Ankle 3+ Views Right CLINICAL INDICATION: r ankle fx/dislocation TECHNIQUE: Two view right tibia and fibula, three view right ankle COMPARISON: None FINDINGS: Proximal tibia and fibula appear intact. Comminuted fracture of the distal fibular shaft, with apex m edial angulation. Displaced fracture of the medial malleolus, and displaced posterior malleolar fracture. Subtalar dislocation, talus is posterior and lateral to the tibial plafond. IMPRESSION: 1. Subtalar dislocation. Medial and posterior malleolar frac tures, distal fibular shaft fracture. Report Dictated on Final Dictated: 01/27/2020 8:40 pm Dictating Physician: MD SPAIN JOHN R Signed Date and Time: 01/27/2020 8:43 pm Signed by: MD SPAIN JOHN R Transcribed Date and Time: 01/27/2020 8:40 basic metabolic panel on 2020-01-27 Calcium [Mass/Vol] 9.3 8.4-10.4 mg/dL Normal 01-27-2020 [facility] ([id number]) Comment: Performed By: #### HEMOG, PT , BMP3, PCAL #### [place] [address] [place], [place] Anion gap [Moles/Vol] 9 Normal 01-27-20 [facility] (06941) Comment: Performed By: #### HEMOG, PT , BMP3, PCAL #### [place] [address], [place] CO2 [Moles/Vol] 26 22-30 mmol/L Normal 01-27-2020 [facility] (55031) Comment: Performed By: #### HEMOG, PT , BMP3, PCAL #### [place] [address], [place] Creatinine [Mass/Vol] 1.02 0.52-1.25 mg/dL Normal 01-27-20 [facility] ([id number]) Comment: Performed By: #### HEMOG, PT , BMP3, PCAL #### [place] [address] [place], [place] GFR/1.73 sq M > 60.0 >60 mL/min/{1.73_m2} Normal 0 [facility] predicted among Syst em (77425) blacks MDRD (S/P/Bld) [Vol rate/Area] Comment: Performed By: #### HEMOG, PT , BMP3, PCAL #### [facility] [employer] [place] [address] [place], [place] GFR/1.73 sq M predicted 55.4 >60 mL/min Normal 2019 [facility] among non-blacks MDRD (17799) (S/P/Bld) [Vol rate/Area] Comment: Result Comment: Source- MDRD equation with creatinine calibration to IDMS(NKDEP) eGFR not recommended for sharon g dose adjustment Performed By: #### HEMOG, PT , BMP3, PCAL #### [facility] [employer] [place] [address] [place], [place] Glucose [Mass/Vol] 93 70-100 mg/dL Normal 01-27-2020 [facility] (80168) Comment: Performed By: #### HEMOG, PT , BMP3, PCAL #### [place] [address] [place], [place] Urea nitrogen [Mass/Vol] 21 7-20 mg/dL High 01-26 [facility] ([id number]) Comment: Performed By: #### HEMOG, PT , BMP3, PCAL #### [place] [address] [place], [place] Chloride [Moles/Vol] 100 98-107 mmol/L Normal 0 [facility] (70386) Comment: Performed By: #### HEMOG, PT , BMP3, PCAL #### [place] [address] [place], [place] Potassium [Moles/Vol] 3.9 3.5-5.1 mmol/L Normal 01-27-20 20 [facility] (83489) Comment: Performed By: #### HEMOG, PT , BMP3, PCAL #### [place] [address] [place], [place] Sodium [Moles/Vol] 135 135-145 mmol/L Normal 01-27-2020 [facility] (10383) Comment: Performed By: #### HEMOG, PT , BMP3, PCAL #### [facility] [address] [place] [address] tsh on 2019-10-31 TSH Qn 1.77 0.36-3.74 mcIU/mL Normal 10-31-2019 [facility] ([place]) (59704) Comment: Performed By: #### A1C, TSH, FT4, LIPID, CMP, GFR #### [address] [address] lipid on 2019-10-31 Cholesterol [Mass/Vol] 185 0-200 mg/dL Normal 020 [facility] ([place]) (0000 0) Comment: Result Comment: Cholesterol Reference Interval: Less than 200 Desirable 200-239 Borderline high risk 240 and above High risk Performed By: #### CMP, GFR #### [place] [address] #### CBC, ADIFF, ANEU #### [address] [address] Cholesterol in HDL 62 40-60 mg/dL High 10-31-2019 [facility] [Mass/Vol] ([place]) (000 00) Comment: Performed By: #### CMP, GFR #### [place] [address] #### CBC, ADIFF, ANEU #### [address] [address] Cholesterol in LDL 103 0-130 mg/dL Normal 10-31-2019 [facility] [Mass/Vol] ([place]) (000 00) Comment: Performed By: #### CMP, GFR #### [place] [address] #### CBC, ADIFF, ANEU #### [address] [address] Triglyceride [Mass/Vol] 100 0-150 mg/dL Normal 2019 [facility] ([place]) (0000 0) Comment: Result Comment: Triglyceride Reference Interval: Less than 150 Normal 150-199 Borderline high risk 200-499 High risk 500 or higher Very high risk Performed By: #### CMP, GFR #### [place] [address] #### CBC, ADIFF, ANEU #### [address] [address] ft4 on 2019-10-31 Free T4 [Mass/Vol] 1.12 0.76-1.46 ng/dL Normal 10-31-2019 [facility] ([place]) (0000 0) Comment: Performed By: #### CMP, GFR #### [place] [address] #### CBC, ADIFF, ANEU #### [address] [address] cmp on 2019-10-31 Albumin [Mass/Vol] 3.9 3.5-5.0 G/dL Normal 10-31-2019 [facility] ([place]) (16415) Comment: Performed By: #### CMP, GFR #### [place] [address] #### CBC, ADIFF, ANEU #### [address] [address] Albumin/Globulin [Mass 1.3 1.1-2.5 ratio Normal [address] [place] [address]] [facility] ([place]) (78914) Comment: Performed By: #### CMP, GFR #### [place] [address] #### CBC, ADIFF, ANEU #### [address] [address] ALP [Catalytic activity/Vol] 83 40-135 U/L Normal 0 10-31-2019 [facility] ([place]) (0000 0) Comment: Performed By: #### CMP, GFR #### [place] [address] #### CBC, ADIFF, ANEU #### [address] [address] ALT [Catalytic activity/Vol] 28 10-35 U/L Normal 0 10-31-2019 [facility] ([place]) (0000 0) Comment: Performed By: #### CMP, GFR #### [facility] [address] [place], [place] [address] #### CBC, ADIFF, ANEU #### [address] [address] AST [Catalytic activity/Vol] 14 10-40 U/L Normal 0 10-31-2019 [facility] ([place]) (0000 0) Comment: Performed By: #### CMP, GFR #### [place] [address] #### CBC, ADIFF, ANEU #### [address] [address] Bili Total 0.5 0.2-1.0 mg/dL Normal 10-31-2019 [facility] ([place]) (32358) Comment: Performed By: #### CMP, GFR #### [place] [address] #### CBC, ADIFF, ANEU #### [address] [address] Calcium [Mass/Vol] 9.2 8.4-10.2 mg/dL Normal 10-31-2019 [facility] ([place]) (0000 0) Comment: Performed By: #### CMP, GFR #### [place] [address] #### CBC, ADIFF, ANEU #### [address] [address] Chloride [Moles/Vol] 104 98-107 mmol/L Normal 0 [facility] ([place]) (0000 0) Comment: Performed By: #### CMP, GFR #### [place] [address] #### CBC, ADIFF, ANEU #### [address] [address] CO2 [Moles/Vol] 30 22-29 mmol/L High 10-31-2019 [facility] ([place]) (07277) Comment: Performed By: #### CMP, GFR #### [place] [address] #### CBC, ADIFF, ANEU #### [address] [address] Creatinine [Mass/Vol] 0.99 0.55-1.02 mg/dL Normal 10-31-19 [facility] ([place]) (91715) Comment: Performed By: #### CMP, GFR #### [place] [address] #### CBC, ADIFF, ANEU #### [address] [address] Electrolyte Balance 8.0 mEq/L Normal 10-31-2019 [facility] ([place]) (46397) Comment: Performed By: #### CMP, GFR #### [place] [address] #### CBC, ADIFF, ANEU #### [address] [address] Globulin (S) [Mass/Vol] 3.1 G/dL Normal 2019 [facility] ([place] (41222) Comment: Performed By: #### CMP, GFR #### [place] [address] #### CBC, ADIFF, ANEU #### [address] [address] Glucose [Mass/Vol] 86 70-105 mg/dL Normal 10-31-2019 [facility] ([place]) (77802) Comment: Performed By: #### CMP, GFR #### [place] [address] #### CBC, ADIFF, ANEU #### [address] [address] Potassium [Moles/Vol] 4.4 3.5-5.1 mmol/L Normal 10-31-19 [facility] ([place]) (0000 0) Comment: Performed By: #### CMP, GFR #### [place] [address] #### CBC, ADIFF, ANEU #### [address] [address] Protein [Mass/Vol] 7.0 6.4-8.2 G/dL Normal 10-31-2019 [facility] ([place]) (62520) Comment: Performed By: #### CMP, GFR #### [place] [address] #### CBC, ADIFF, ANEU #### [address] [address] Sodium [Moles/Vol] 142 136-145 mmol/L Normal 10-31-2019 [facility] ([place]) (0000 0) Comment: Performed By: #### CMP, GFR #### [place] [address] #### CBC, ADIFF, ANEU #### [address] [address] Urea nitrogen [Mass/Vol] 19 7-18 mg/dL High 10-31 [facility] ([place]) (96945) Comment: Performed By: #### CMP, GFR #### [place] [address] #### CBC, ADIFF, ANEU #### [address] [address] Urea nitrogen/Creatinine [Mass 19 7-27 ratio Normal 10-31-2019 [facility]] [facility] ([place]) ([address]297) Comment: Performed By: #### CMP, GFR #### [place] [address] #### CBC, ADIFF, ANEU #### [address] [address] a1c on 2019-10-31 HbA1c (Bld) [Mass 5.7 4.5-6.2 % Normal 10-31-2019 A [facility] fraction] ([place]) (0000 0) Comment: Performed By: #### A1C, TSH, FT4, LIPID, CMP, GFR #### [address] [address] .gfr on 2019-10-31 GFR Non- 57 ml/min/1.73sqm Normal 10-31-2019 [facility] ([place]) (84105) Comment: Result Comment: GFR Population mean for Afri can Ugandan, Non- Americans Ages 20-29 = 116 mL/min/1.73 sq.m. Ages 30-39 = 107 mL/min/1.73 sq.m. Ages 40-49 = 99 mL/min/1.73 sq.m. Ages 50-59 = 93 mL/min/1.73 sq.m. Ages 60-69 = 85 mL/min/1.73 sq.m. Ages 70+ = 75 mL/min/1.73 sq .m. Chronic Kidney Disease: Less than 60 mL/min/1.73 square meters End Stage Renal Disease: Les s than 15 mL/min/1.73 square meters Performed By: #### CMP, GFR #### [address] [address] #### LO, REGINALDIFF, ANEU #### [address] [address] GFR 70 ml/min/1.73sqm Normal 10-05 [facility] ([place]) (0000 0) Comment: Result Comment: GFR Population mean for Afri can Ugandan, Non- Americans Ages 20-29 = 116 mL/min/1.73 sq.m. Ages 30-39 = 107 mL/min/1.73 sq.m. Ages 40-49 = 99 mL/min/1.73 sq.m. Ages 50-59 = 93 mL/min/1.73 sq.m. Ages 60-69 = 85 mL/min/1.73 sq.m. Ages 70+ = 75 mL/min/1.73 sq .m. Chronic Kidney Disease: Less than 60 mL/min/1.73 square meters End Stage Renal Disease: Les s than 15 mL/min/1.73 square meters Performed By: #### CMP, GFR #### [address] [address] #### CBC, ADIFF, ANEU #### [address] [address] cur on 2019-06-01 CUR . Normal 06-01-2019 [facility] [place] MICRO - Microbiology [facility] ([place]) ([id number]) PROCEDURE: Urine Culture [*1] SOURCE: Urine, Clean Catch BODY SITE: COLLECTED DATE/TIME: 05/30/20 14:35 EDT RECEIVED DATE/TIME: 05/30/2019 20:17 EDT START DATE/TIME: 05/30/2019 20:17 EDT FREE TEXT SOURCE: FINAL REPORTS Final Report [] Verified Date/Time/Personnel: 06/01/2019 07:35 EDT 10,000 organisms per mL Mixed without predominant isolate(s) . Sensitivity Testing not indicated. Probably contamination. Repeat culture suggested. PRELIMINARY REPORTS Preliminary Report [] Verified Date/Time/Personnel: 05/31/2019 08:33 EDT No growth to date Performing Locations *1: This test was performed at: [facility], [address] [place] [address], [address] , [place] Comment: Performed By: #### CUR #### [place] [address] xr chest 2 views on 2019-05-31 XR CHEST 2 VIEWS ORIGINAL Normal 05-31-2019 [facility] XR CHEST 2 VIEWS [place] ([place]) ([id number]) CLINICAL STATEMENT: Epigastric pain. COMPARISON: 11/16/2018 FINDINGS: The heart size is normal. There is no vascular congestion or focal infiltrate. No pleural abnormality is seen. IMPRESSION: No acute process. Interpreted By: Keiko Pollard MD Preliminary Report By: Keiko Pollard MD Electronically Signed By: Keiko Pollard MD Dictated Date: 05/31/2019 12:56:20 PM Prelim Date: 05/31/2019 12:56:20 PM Sign Date: 05/31/2019 12:57:37 PM cmp on 2019-05-30 Albumin [Mass/Vol] 4.1 3.5-5.0 G/dL Normal 05-30-2019 [facility] ([place]) (92584) Comment: Performed By: #### CMP, GFR #### [address] [address] #### CBC, ADIFF, ANEU #### [place] [address] [place], [place] [address] Albumin/Globulin [Mass 1.3 1.1-2.5 ratio Normal [address] [place] [address]] [facility]) (26673) Comment: Performed By: #### CMP, GFR #### [place] [address] #### CBC, ADIFF, ANEU #### [address] [address] ALP [Catalytic activity/Vol] 95 40-135 U/L Normal 0 05-30-2019 [facility] ([place]) (0000 0) Comment: Performed By: #### CMP, GFR #### [place] [address] #### CBC, ADIFF, ANEU #### [address] [address] ALT [Catalytic activity/Vol] 31 10-35 U/L Normal 0 05-30-2019 [facility] ([place]) (0000 0) Comment: Performed By: #### CMP, GFR #### [place] [address] #### CBC, ADIFF, ANEU #### [address] [address] AST [Catalytic activity/Vol] 18 10-40 U/L Normal 0 05-30-2019 [facility] ([place]) (0000 0) Comment: Performed By: #### CMP, GFR #### [place] [address] #### CBC, ADIFF, ANEU #### [address] [address] Bili Total 0.5 0.2-1.0 mg/dL Normal 05-30-2019 [facility] ([place]) (37889) Comment: Performed By: #### CMP, GFR #### [place] [address] #### CBC, ADIFF, ANEU #### [address] [address] Calcium [Mass/Vol] 9.3 8.4-10.2 mg/dL Normal 05-30-2019 [facility] ([place]) (0000 0) Comment: Performed By: #### CMP, GFR #### [place] [address] #### CBC, ADIFF, ANEU #### [address] [address] Chloride [Moles/Vol] 103 98-107 mmol/L Normal 9 [facility] ([place]) (0000 0) Comment: Performed By: #### CMP, GFR #### [place] [address] #### CBC, ADIFF, ANEU #### [address] [address] CO2 [Moles/Vol] 28 22-29 mmol/L Normal 05-30-2019 [facility]) (04055) Comment: Performed By: #### CMP, GFR #### [place] [address] #### CBC, ADIFF, ANEU #### [address] [address] Creatinine [Mass/Vol] 0.93 0.55-1.02 mg/dL Normal 05-30-20 19 [facility] ([place]) (31403) Comment: Performed By: #### CMP, GFR #### [place] [address] #### CBC, ADIFF, ANEU #### [address] [address] Electrolyte Balance 11.0 mEq/L Normal 05-30-2019 [facility] ([place]) (60826) Comment: Performed By: #### CMP, GFR #### [place] [address] #### CBC, ADIFF, ANEU #### [address] [address] Globulin (S) [Mass/Vol] 3.2 G/dL Normal 2018 [facility] ([place]) (04155) Comment: Performed By: #### CMP, GFR #### [place] [address] #### CBC, ADIFF, ANEU #### [address] [address] Glucose [Mass/Vol] 78 70-105 mg/dL Normal 05-30-2019 [facility] ([place] (47519) Comment: Performed By: #### CMP, GFR #### [place] [address] #### CBC, ADIFF, ANEU #### [address] [address] Potassium [Moles/Vol] 4.3 3.5-5.1 mmol/L Normal 05-30-20 [facility] ([place]) (0000 0) Comment: Performed By: #### CMP, GFR #### [place] [address] #### CBC, ADIFF, ANEU #### [address] [address] Protein [Mass/Vol] 7.3 6.4-8.2 G/dL Normal 05-30-2019 [facility] ([place]) (09223) Comment: Performed By: #### CMP, GFR #### [place] [address] #### CBC, ADIFF, ANEU #### [address] [address] Sodium [Moles/Vol] 142 136-145 mmol/L Normal 05-30-2019 [facility] ([place] (0000 0) Comment: Performed By: #### CMP, GFR #### [place] [address] #### CBC, ADIFF, ANEU #### [address] [address] Urea nitrogen [Mass/Vol] 15 7-18 mg/dL Normal 05-30 [facility] ([place]) (0000 0) Comment: Performed By: #### CMP, GFR #### [place] [address] #### CBC, ADIFF, ANEU #### [address] [address] Urea nitrogen/Creatinine [Mass 16 -27 ratio Normal 05-30-2019 [facility] ratio] [facility] ([place]) (11239) Comment: Performed By: #### CMP, GFR #### [place] [address] #### CBC, ADIFF, ANEU #### [address] [address] cbc on 2019-05-30 Erythrocyte distribution 13.5 11.5-14.5 % Normal 05-30 [facility] width (RBC) [Ratio] [facility] ([place]) (26654) Comment: Performed By: #### CMP, GFR #### [place] [address] #### CBC, ADIFF, ANEU #### [address] [address] Hematocrit (Bld) [Volume 44.5 37.0-47.0 % Normal 05-30 [facility] fraction] ([place]) (0000 0) Comment: Performed By: #### CMP, GFR #### [place] [address] #### CBC, ADIFF, ANEU #### [address] [address] Hemoglobin (Bld) 14.6 12.0-16.0 G/dL Normal 05-30-2019 [facility] [Mass/Vol] [facility] ([place]) (01315) Comment: Performed By: #### CMP, GFR #### [place] [address] #### CBC, ADIFF, ANEU #### [address] [address] MCH (RBC) [Entitic mass] 29.6 27.0-31.2 pg Normal 05-30 [facility] ([place]) (0000 0) Comment: Performed By: #### CMP, GFR #### [place] [address] #### CBC, ADIFF, ANEU #### [address] [address] MCHC (RBC) [Mass/Vol] 32.8 33.0-37.0 G/dL Low 05-30-20 19 [facility] ([place]) (0000 0) Comment: Performed By: #### CMP, GFR #### [place] [address] #### CBC, ADIFF, ANEU #### [address] [address] MCV (RBC) [Entitic vol] 90.1 80.0-94.0 fL Normal 2018 [facility] ([place]) (0000 0) Comment: Performed By: #### CMP, GFR #### [place] [address] #### CBC, ADIFF, ANEU #### [address] [address] Platelet mean volume 7.9 7.4-10.4 fL Normal 9 [facility] (d) [Entitic vol] ([place]) (35561) Comment: Performed By: #### CMP, GFR #### [place] [address] #### CBC, ADIFF, ANEU #### [address] [address] Platelets (Bld) [#/Vol] 295 130-400 10 3/mcL Normal 2018 [facility] ([place]) (34654) Comment: Performed By: #### CMP, GFR #### [place] [address] #### CBC, ADIFF, ANEU #### [address] [address] RBC (Bld) [#/Vol] 4.94 4.20-5.40 10 6/mcL Normal 05-30-2019 A [facility] ([place]) (0000 0) Comment: Performed By: #### CMP, GFR #### [place] [address] #### CBC, ADIFF, ANEU #### [place] [address] [place], [place] [address] WBC (Bld) [#/Vol] 8.00 4.60-10.80 10 3/mcL Normal 05-30-2019 [facility] ([place]) ([address]178) Comment: Performed By: #### CMP, GFR #### [place] [address] #### CBC, ADIFF, ANEU #### [place] [address] [place], [place] [address] .neuabs on Neutrophils (Bld) 4.60 2.85-6.16 10 3/mcL Normal 05-30-2019 [facility] [#/Vol] [facility] ([place]) ([address]) Comment: Performed By: #### CMP, GFR #### [place] [address] #### CBC, ADIFF, ANEU #### [place] [address] [place], [place] [address] .gfr on 2019-05-30 GFR Non- 62 ml/min/1.73sqm Normal 05-30-2019 [facility] ([place]) (298[address]) Comment: Result Comment: GFR Population mean for Afri can Ugandan, Non- Americans Ages 20-29 = 116 mL/min/1.73 sq.m. Ages 30-39 = 107 mL/min/1.73 sq.m. Ages 40-49 = 99 mL/min/1.73 sq.m. Ages 50-59 = 93 mL/min/1.73 sq.m. Ages 60-69 = 85 mL/min/1.73 sq.m. Ages 70+ = 75 mL/min/1.73 sq .m. Chronic Kidney Disease: Less than 60 mL/min/1.73 square meters End Stage Renal Disease: Les s than 15 mL/min/1.73 square meters Performed By: #### CMP, GFR #### [place] [address] #### CBC, ADIFF, ANEU #### [address] [address] GFR 75 ml/min/1.73sqm Normal 05-05 [facility] ([place]) (0000 0) Comment: Result Comment: GFR Population mean for Afri can Ugandan, Non- Americans Ages 20-29 = 116 mL/min/1.73 sq.m. Ages 30-39 = 107 mL/min/1.73 sq.m. Ages 40-49 = 99 mL/min/1.73 sq.m. Ages 50-59 = 93 mL/min/1.73 sq.m. Ages 60-69 = 85 mL/min/1.73 sq.m. Ages 70+ = 75 mL/min/1.73 sq .m. Chronic Kidney Disease: Less than 60 mL/min/1.73 square meters End Stage Renal Disease: Les s than 15 mL/min/1.73 square meters Performed By: #### CMP, GFR #### [place] [address] #### CBC, ADIFF, ANEU #### [address] [address] .auto diff on 05-30 Ammonia (P) [Mass/Vol] 0.50 0.15-1.00 10 3/mcL Normal 019 [facility] ([place]) ([id number]) Comment: Performed By: #### CMP, GFR #### [place] [address] #### CBC, ADIFF, ANEU #### [address] [address] Basophils (Bld) 0.10 0.00-0.19 10 3/mcL Normal 05-30-2019 [facility] [#/Vol] [facility] ([place]) ([id number]) Comment: Performed By: #### CMP, GFR #### [place] [address] #### CBC, ADIFF, ANEU #### [address] [address] Basophils/100 WBC (Bld) 0.9 0.0-2.5 % Normal 2018 [facility] ([place]) (0000 0) Comment: Performed By: #### CMP, GFR #### [place] [address] #### CBC, ADIFF, ANEU #### [address] [address] Eosinophils (Bld) 0.10 0.00-0.40 10 3/[facility] Normal 05-30-2019 [facility] [#/Vol] [facility] ([place]) ([id number]) Comment: Performed By: #### CMP, GFR #### [place] [address] #### CBC, ADIFF, ANEU #### [address] [address] Eosinophils/100 WBC (Bld) 0.8 0.0-7.0 % Normal 05-05 [facility] ([place]) (0000 0) Comment: Performed By: #### CMP, GFR #### [place] [address] #### CBC, ADIFF, ANEU #### [address] [address] Lymphocytes (Bld) 2.80 0.77-3.85 10 3/[facility] Normal 05-30-2019 [facility] [#/Vol] [facility] ([place]) ([address]) Comment: Performed By: #### CMP, GFR #### [place] [address] #### CBC, ADIFF, ANEU #### [address] [address] Lymphocytes/100 WBC (Bld) 35.0 10.0-50.0 % Normal 05-05 [facility] ([place]) ([id number]) Comment: Performed By: #### CMP, GFR #### [place] [address] #### CBC, ADIFF, ANEU #### [address] [address] Monocytes/100 WBC (Bld) 5.9 1.7-13.0 % Normal 2018 [facility] ([place]) (0000 0) Comment: Performed By: #### CMP, GFR #### [address] [address] #### CBC, ADIFF, ANEU #### [address] [address] Neutrophils/100 WBC (Bld) 57.4 37.0-80.0 % Normal 05-05 [facility] ([place]) ([id number]) Comment: Performed By: #### CMP, GFR #### [address] [address] #### CBC, ADIFF, ANEU #### [address] [address] lipid on 2019-05-03 Cholesterol [Mass/Vol] 192 0-200 mg/dL Normal 019 [facility] ([place]) (0000 0) Comment: Result Comment: Cholesterol Reference Interval: Less than 200 Desirable 200-239 Borderline high risk 240 and above High risk Performed By: #### LIPID ### # [address] [address] Cholesterol in HDL 56 40-60 mg/dL Normal 05-03-2019 [facility] [Mass/Vol] ([place]) (000 00) Comment: Performed By: #### LIPID ### # [address] [address] Cholesterol in LDL 104 0-130 mg/dL Normal 05-03-2019 [facility] [Mass/Vol] ([place]) (000 00) Comment: Performed By: #### LIPID ### # [address] [address] Triglyceride [Mass/Vol] 162 0-150 mg/dL High 2018 [facility] ([place]) (0000 0) Comment: Result Comment: Triglyceride Reference Interval: Less than 150 Normal 150-199 Borderline high risk 200-499 High risk 500 or higher Very high risk Performed By: #### LIPID ### # [address] [address] Summary Purpose Family History No Family History Records FoundNo Family History Records Found Advance Directives No Advanced Directives Records FoundNo Advanced Directives Records Found Additional Source Comments FOR RECORDS PERTAINING TO PATIENTS WHO ARE OR HAVE BEEN ENROLLED IN A CHEMICAL DEPENDENCY/SUBSTANCE ABUSE PROGRAM, SOME INFORMATION MAY BE OMITTED. This clinical summary was aggregated from multiple sources. Caution should be exercised in using it in the provision of clinical care. This summary normalizes information from multiple sources, and as a consequence, information in this document may materially changethe coding, format and clinical context of patient data. In addition, data may be omittedin some cases. CLINICAL DECISIONS SHOULD BE BASED ON THE PRIMARY CLINICAL RECORDS. [facility] provides no warranty or guarantee of the accuracy or completeness of information in this document. UNRECOGNIZED CONTENT PROVIDED BELOW FOR UNRECOGNIZED SECTION INFORMATION SOURCE DATE CREATED AUTHOR AUTHOR'S ORGANIZATIO N 03/18/2020 [facility] DATE CREATED AUTHOR AUTHOR'S ORGANIZATIO N 04/30/2020 [facility] ([place])
== END ==
PROVIDERS: PCP Student in an Organized Health Care Education/Training Program; Referring Provider Internal Medicine Critical Care Medicine; Visit Provider Internal Medicine Critical Care Medicine
DX: R06.00 Dyspnea, unspecified (principal)
CPT/HCPCS: 94060; 94726; 94729

== ENCOUNTER → 2020-03-21 12:07 | Outpatient (CLI) | payer MEDICARE, SELFPAY ==
[2020-01-19 13:33] VITALS: BMI 23.1
[2020-03-21 12:40] VITALS: PULSE 103; PULSE 105; PULSE 109; PULSE 110; PULSE 111; PULSE 113; O2SAT 97; O2SAT 98; O2SAT 99
--- NOTE | 2020-03-21 12:47 | CPS ---
Patient came in with a knee scooter because she is in a walking boot. Patient had stated that she talked to Dr. Martinez's office and they still wanted her to get her 6 minute walk test done even with the knee scooter. Patient stated she was moderately to somewhat severely short of breath, patient was speaking in full sentences.
--- NOTE | 2020-03-22 10:59 | WT_ITS ---
PSN 6 Minute Walk Test - 6 Minute Walk Test 6 Minute Walk Test: 6 Minute Walk Test PSN:6-Minute Walk Test Start: 03/21/20 12:36 Freq: Status: Active Protocol: RESP.6MINW Document 03/21/20 12:40 CHANTALE (Rec: 03/21/20 12:49 CHANTALE [id number]) 6 Minute Walk Test Date Performed 03/21/20 Time Performed 12:30 Height 5 ft 7 in Weight: 140 lb Weight in Pounds 140.[address]: Ilya Martinez Assistive device used: Walker Pre-test Oxygen Delivery Method Room Air Pulse Ox (%) 98 Pulse Rate (60-100 beats/min) 105 H Dyspnea Michelle Scale (0-10) 0 Exertion Michelle Scale (6-20) 6 1st minute Oxygen Delivery Method Room Air Pulse Ox (%) 99 Pulse Rate (60-100 beats/min) 109 H 2nd minute Oxygen Delivery Method Room Air Pulse Ox (%) 98 Pulse Rate (60-100 beats/min) 111 H 3rd minute Oxygen Delivery Method Room Air Pulse Ox (%) 98 Pulse Rate (60-100 beats/min) 111 H 4th minute Oxygen Delivery Method Room Air Pulse Ox (%) 97 Pulse Rate (60-100 beats/min) 110 H 5th minute Oxygen Delivery Method Room Air Pulse Ox (%) 98 Pulse Rate (60-100 beats/min) 113 H 6th minute Oxygen Delivery Method Room Air Pulse Ox (%) 98 Pulse Rate (60-100 beats/min) 111 H Dyspnea Michelle Scale (0-10) 4 Exertion Michelle Scale (6-20) 14 Post-test Oxygen Delivery Method Room Air Pulse Ox (%) 99 Pulse Rate (60-100 beats/min) 103 H Full Laps Walked 8 Partial Lap, Number of Tiles Walked 45 Total Distance Walked (ft) 517 03/21/20 12:47 Cardiopulmonary Services by Daphne Burden Patient came in with a knee scooter because she is in a walking boot. Patient had stated that she talked to Dr. Martinez's office and they still wanted her to get her 6 minute walk test done even with the knee scooter. Patient stated she was moderately to somewhat severely short of breath, patient was speaking in full sentences. Initialized on 03/21/20 12:47 - END OF NOTE - Interpretation Interpretation: The patient ambulated 517 feet over the course of 6 minutes beginning on room air with the use of a scooter. Pretesting oxygen saturation was noted to be 98% on room air. With ambulation, the shayna oxygen saturation was 97%. Although there was evidence of impaired walk distance, there was no significant exertio nal oxygen desaturation. - Recommendations Recommendations: There is no indication for the use of supplemental oxygen at this time.
== END ==
PROVIDERS: PCP Student in an Organized Health Care Education/Training Program; Referring Provider Internal Medicine Critical Care Medicine; Visit Provider Internal Medicine Critical Care Medicine
DX: R06.00 Dyspnea, unspecified (principal)
CPT/HCPCS: 94618

== ENCOUNTER → 2020-03-27 14:27 | Outpatient (CLI) | payer MEDICARE, SELFPAY ==
[2020-01-19 13:33] VITALS: BMI 23.1
--- NOTE | 2020-03-27 14:27 | CT_ITS ---
STUDY: CT CHEST WITH CONTRAST REASON FOR EXAM: Female, 59 years old. CHRISSY MASS? F/U FROM 01/17/2020 RADIATION DOSAGE (If Supplied By Facility): CTDIvol = ( 9.77 ) mGy, DLP = ( 300.35 ) mGycm TECHNIQUE: Transaxial imaging was performed following intravenous administration of IV 100ML ISOVUE 370. Multiplanar coronal and sagittal images were reformatted. Individualized dose optimization techniques were used for this CT. COMPARISON: 01/17/2020 FINDINGS: Lung windows show a decrease in size of a previously noted pleural-based nodule in the left upper lobe. On the previous study it measured 2 x 1.4 cm. On today''s examination it measures 1.02 x 1.22 cm. Continued follow-up recommended to assure complete resolution. Since it has decreased in size. I suspect represents a benign process. No other suspicious noncalcified mass or nodule is noted. Scattered areas of nonspecific pleural thickening noted in both hemithoraces. The soft tissue windows show normal-appearing thyroid gland. Scattered subcentimeter mediastinal lymph nodes noted. No pleural or pericardial effusions. The lungs are normal. There is no demonstrated pleural abnormality. Normal heart and pericardium. Normal enhanced pulmonary arteries. Normal aorta arch and descending thoracic aorta. There are multi-level degenerative changes of the thoracic spine. Limited cuts through the upper abdomen show fatty infiltration of the liver, and accessory splenule'' s. No suspicious enhancing lesion noted. CT/Chest WITH Contrast IMPRESSION: When compared to the previous study of 01/17/2020. Previously described 2 x 1.4 cm area of pleural-based opacification in the left upper lobe has decreased in size. It now measures approximately 1.02 x 1.2 cm. Continued follow-up recommended to assure resolution. Given the fact that it has decreased in size, it likely is a benign process No other suspicious noncalcified mass or nodule. No organized infiltrate or groundglass opacifications Fatty liver Accessory splenule'' s Scattered subcentimeter incidental lymph nodes, these have also decreased in size since the previous study. Electronically Signed: Faisal Avery MD at 15:53 EDT , Service support ,
== END ==
PROVIDERS: PCP Student in an Organized Health Care Education/Training Program; Referring Provider Internal Medicine Critical Care Medicine; Visit Provider Internal Medicine Critical Care Medicine
DX: R91.8 Other nonspecific abnormal finding of lung field (principal)
CPT/HCPCS: 71260; Q9967

== ENCOUNTER 2020-06-06 14:00 | Outpatient (RCR) | payer MEDICARE, SELFPAY ==
[2020-01-19 13:33] VITALS: BMI 23.1
[2020-05-01 05:51] VITALS: BMI 21.9
--- NOTE | 2020-05-08 10:01 | HP.PTEVAL ---
Patient's Visit Information ALEX LYNN is a 59 year old F referred to Physical Therapy by Dr. Maximino Roberts MD with a diagnosis of CLOSED FRACTURE OF ANKLE TRIMELLEOLAR,RIGHT ANKLE. Date of Evaluation: 05/08/20 Physical Therapist: Chapo Aparicio, PT, Cert MDT, OCS - Visit Plan Frequency: 1x/Week Duration: 8WEEKS Plan: PATIENT UNDERWENT S/P RIGHT ANKLE ORIF JANUARY 26. PATIENT HAS H/O CVA WITH RIGHT SIDE HEMIPARESIS. PT INTERVETIONS ROM /FLEXABILITY ANKLE ,STRENGTHENING RIGHT ANKLE AND HIP/QUADS/HAMS,BALANCE AND GAIT TRAINING AND GRADE PROPRIOCEPTION - Subjective This 59 y/o female presents to physical therapy for right ankle trimalleor fracture. Patient fracture right ankle January 26,stepping down on landing. Patient went to ER at [facility] thus went ORIF right lukas plates and screws on January 29. Patient went to [facility] rehab for ~ 1wk,then stayerd with family thus [facility] PT 2 months Patient intially had 2 months then had a walking boot with 50# knee scooter was NWB right 3 MON[address] .Seen DR about 1 10/05 with FWB right ankle with QC due to patient has right hemiplegia from CVA. Patient currently stays with Mom who she cares for.Patient has difficulty with ADLS' and difficulty with bathing. Patient has 1 story home with no steps. Patient has some parathesia anterior ankle. Patient sleeping okay. Patient able to drive. Patient condition affect QOL and function/ADLS.Prior to surgey patient ambulated without device. SOCIAL: single. VOCATION: [employer] - Pain Right Pain Intensity (Out of 10): 4 Pain Intensity Range: 10 - Objective POSTURE: mild foward posture ,pes cavus. GAIT: ambulates with QC with point gait decrease stance time right with poor DF. EDEMA:trimaleor joint 56 cm ,met heads 25 cm. NEURO: light touch intact. AROM: 30 degrees from 0 for dorsiflexion,60 degrees planterflexion ,inversion 17 degrees ,eversion 0 degrees. MMT: ankle dorsiflexion 3+/5 peroneous/posterior tib 3+/5,G-S 2/3. PROPRIOCEPTION: poor. DYNAMIC BALANCE: fair - - Goals Goal 1:: Patient to be I with HEP Goal Time Frame: 4-6 Weeks Goal 2:: Patient to improve ankle ROM by 5-10 degrees or > to improve function with gait. Goal Time Frame: 4-6 Weeks Goal 3:: Patient increase strength ankle 4-/5 except G-S 3/5 to improve gait. Goal Time Frame: 4-6 Weeks Goal 4:: Patient ambulated with least restrictive device with improve gait pattern Goal Time Frame: 4-6 Weeks Goal 5:: Patient improve LFES score by 10 points or> to improve QOL and function. Goal Time Frame: 4-6 Weeks - Rehabilitation Potential Physical Therapy Diagnosis: This patient fx right ankle underwent s/p ORIF ankle with current imparments with ROM,strength ,gait and balance thus benifit from skilled PT Rehabilitation Potential: Good - Anticipated Interventions Patient/Client Instruction: Educate patient on: Condition For the Purpose of:: To decrease pain, To increase ROM, To improve muscle performance and motor function, To improve ability to perform ADL's, To increase tolerance to activity/condition/position, To improve ability of physical actions for home/community/work/leisure, To improve gait and locomotor functions, To increase flexibility/ROM, To improve balance, To improve safety with gait, To reduce risk of recurrence, To improve ability to perform tasks related to life management Therapeutic Exercise to Include: Strength training, Endurance training, Balance training, Flexibilty training, Active ROM Comment: ANKLE/HIP/KNEE For the Purpose of:: To decrease pain, To increase ROM, To improve muscle performance and motor function, To improve ability to perform ADL's, To increase tolerance to activity/condition/position, To improve ability of physical actions for home/community/work/leisure, To decrease soft tissue restriction, To increase flexibility/ROM, To reduce risk of recurrence, To improve ability to perform tasks related to life management Cryotherapy (ice pack, ice massage): Yes Thermo therapy (hot pack): Yes For the Purpose of:: To decrease pain, To decrease swelling/inflammation, To improve nutrient delivery to tissue, To increase oxygenation perfusion Thank you for the opportunity to evaluate your patient. For Medicare and Medicare HMO plans, please review the plan of care and approve it. It will need to be FAXED BACK to us at [phone] for Medicare purposes. For Medicare only, by signing this I certify the plan of care. Please let me know if there are questions or concerns regarding this plan of care. Physician Signature: Date:
--- NOTE | 2020-06-06 14:48 | HP.PTDCSUM ---
It has been my pleasure to treat ALEX LYNN referred by Dr. Maximino Roberts MD, with the diagnosis of CLOSED FRACTURE OF ANKLE TRIMELLEOLAR,RIGHT ANKLE for a total of 9 visit(s). Discharge Date: 06/06/20 Please see the following information for a summary of their discharge status. Subjective: Patient doing well. RTW walking good. Patient still has swelling ankle. Walking good doing ADL'S .Conts to ice and uses compression sleeve. Right Pain Intensity (Out of 10): 0 % Improvement: 75 Objective/Function: GAIT: RECIPRCAL PATTERN MILD DECREASE STANCE TIME RLE. PROPIOCEPTION: 10-15 SEC. NEURO: intact. AROM ANKLE: DF 5 DEGREES FROM 0,PF 65 DEGREES,IN 20 DEGREES,EV 5 DEGREES. MMT ANKLE: 4/5 ,3+/5 G-S Goal 1:: Patient to be I with HEP Goal Progress: Goal Met Goal 2:: Patient to improve ankle ROM by 5-10 degrees or > to improve function with gait. Goal Progress: Goal Met Goal 3:: Patient increase strength ankle 4-/5 except G-S 3/5 to improve gait. Goal Progress: Goal Met Goal 4:: Patient ambulated with least restrictive device with improve gait pattern Goal Progress: Goal Met Goal 5:: Patient improve LFES score by 10 points or> to improve QOL and function. Goal Progress: Goal Met Plan: D/C Discharge Comments: D/C TO HEP If there are questions or concerns regarding this patient's physical therapy, please feel free to call me at [phone]. Thank you for the referral of this patient. Sincerely, Chapo Aparicio, PT, Cert MDT, OCS
== END 2020-06-06 19:00 | disposition home or self-care (01) ==
LOC: PT 14:00
PROVIDERS: PCP Student in an Organized Health Care Education/Training Program; Referring Provider Orthopaedic Surgery; Visit Provider Orthopaedic Surgery
DX: S82.851D Displaced trimalleolar fracture of right lower leg, subsequent encounter for closed fracture with routine healing (principal)
CPT/HCPCS: 97110; 97162; 97530

== ENCOUNTER → 2020-10-31 06:51 | Outpatient (CLI) | payer MEDICARE, SELFPAY ==
[2020-05-01 05:51] VITALS: BMI 21.9
--- NOTE | 2020-10-31 06:54 | CT_ITS ---
STUDY: CT CHEST WITHOUT CONTRAST REASON FOR EXAM: Female, 60 years old. FOLLOW UP WEDGE DEFECT, HX-CVA RADIATION DOSAGE (If Supplied By Facility): CTDIvol = ( 6.51 ) mGy, DLP = ( 232.69 ) mGycm TECHNIQUE: Transaxial imaging was performed without the administration of intravenous contrast material. Multiplanar coronal and sagittal images were reformatted. Individualized dose optimization techniques were used for this CT. COMPARISON: Comparison is made with prior examination dated 03/27/2020. FINDINGS: Stable mild scarring at the right lung apex. The previously seen wedge-shaped density in the peripheral lateral aspect of the lingular segment of the left upper lobe presently measures 1 cm x 1 cm. It has decreased slightly in size as compared to prior examination. There is no demonstrated pleural abnormality. There are calcifications of the coronary arteries. There are multiple small lymph nodes within the mediastinum, which are normal in size and morphology most compatible with reactive lymph hyperplasia. Normal hilar regions. Normal unenhanced pulmonary arteries. There is atherosclerotic calcification of the aortic arch with tortuosity and elongation of the aortic arch and descending thoracic aorta. There are multi-level degenerative changes of the thoracic spine. There is no demonstrated abnormality of the visualized upper abdomen. CT/Chest without Contrast IMPRESSION: Slight further decrease in size of the peripheral based density in the lingular segment of the left upper lobe presently measuring 1 cm x 1 cm. Electronically Signed: Pepe Baires MD at 8:29 EST , Service support ,
== END ==
PROVIDERS: PCP Student in an Organized Health Care Education/Training Program; Visit Provider Internal Medicine Critical Care Medicine
DX: R91.8 Other nonspecific abnormal finding of lung field (principal); Z90.710 Acquired absence of both cervix and uterus
CPT/HCPCS: 71250

== ENCOUNTER → 2021-05-29 16:39 | Outpatient (CLI) | payer MEDICARE, SELFPAY ==
--- NOTE | 2021-05-29 16:40 | CT_ITS ---
STUDY: CT CHEST WITHOUT CONTRAST REASON FOR EXAM: Female, 60 years old. continued surveilence of mass CHRISSY RADIATION DOSAGE (If Supplied By Facility): CTDIvol = ( 7.21 ) mGy, DLP = ( 266.62 ) mGycm TECHNIQUE: Transaxial imaging was performed without the administration of intravenous contrast material. Individualized dose optimization techniques were used for this CT. COMPARISON: 10/31/2020 FINDINGS: Mild bilateral apical scarring. No change in 1 cm noncalcified nodule in the periphery of the left upper lobe lung on image 71. No new noncalcified nodule or mass. There is no demonstrated pleural abnormality. Normal heart and pericardium. Normal mediastinum. Normal hilar regions. Normal unenhanced pulmonary arteries. Normal aorta arch and descending thoracic aorta. Normal osseous structures. There is no demonstrated abnormality of the visualized upper abdomen. CT/Chest without Contrast IMPRESSION: No change in 1 cm left upper lobe nodule. Follow-up CT is recommended in 6 months to document stability. Electronically Signed: Wilfredo Davison MD at 17:10 EDT Tel , Service support ,
== END ==
PROVIDERS: Visit Provider Nurse Practitioner Acute Care
DX: R91.8 Other nonspecific abnormal finding of lung field (principal)
CPT/HCPCS: 71250

== ENCOUNTER → 2022-02-18 | Outpatient (CLI) | payer MEDICARE, SELFPAY ==
--- NOTE | 2022-02-18 15:53 | CT_ITS ---
STUDY: CT CHEST WITHOUT CONTRAST REASON FOR EXAM: Female, 61 years old. Complete 2 year follow up CHRISSY nodule. RADIATION DOSAGE (If Supplied By Facility): CTDIvol = ( 9.28 ) mGy, DLP = ( 343.37 ) mGycm TECHNIQUE: Transaxial imaging was performed without the administration of intravenous contrast material. Multiplanar coronal and sagittal images were reformatted. Individualized dose optimization techniques were used for this CT. COMPARISON: Comparison is made with prior examination 05/29/2021. FINDINGS: CHEST Mild degree of emphysematous changes with scarring in both upper lobes. Stable 1.1 cm noncalcified nodule in the peripheral lateral aspect of the left upper lobe as seen on axial image #76. No new nodule is seen. There is no demonstrated pleural abnormality. There are calcifications of the coronary arteries. There are multiple small lymph nodes within the mediastinum, which are normal in size and morphology most compatible with reactive lymph hyperplasia. Normal hilar regions. Normal unenhanced pulmonary arteries. There is atherosclerotic calcification of the aortic arch with tortuosity and elongation of the aortic arch and descending thoracic aorta. There are mild degenerative changes of the thoracic spine. There is no demonstrated abnormality of the visualized upper abdomen. CT/Chest without Contrast IMPRESSION: Stable examination. Electronically Signed: Pepe Baires MD at 8:55 EDT ,
== END | disposition home or self-care (01) ==
LOC: CT 15:53
PROVIDERS: PCP Student in an Organized Health Care Education/Training Program; Referring Provider Internal Medicine Critical Care Medicine; Visit Provider Internal Medicine Critical Care Medicine
DX: R91.8 Other nonspecific abnormal finding of lung field (principal)
CPT/HCPCS: 71250

== ENCOUNTER 2022-03-09 10:02 | Observation (INO) | payer MEDICARE, SELFPAY ==
[2022-03-09] VITALS (8 sets, daily range): BP systolic 103–147; BP diastolic 62–90; PULSE 62–87; RESP 13–19; TEMP 36.1–36.8; O2SAT 95–100; BMI 23.3; BMI 22.2
--- NOTE | 2022-03-09 10:26 | EKG12_ITS ---
Test Reason : CP Blood Pressure : / mmHG Vent. Rate : 085 BPM Atrial Rate : 085 BPM P-R Int : 120 ms QRS Dur : 082 ms QT Int : 396 ms P-R-T Axes : 032 037 063 degrees QTc Int : 471 ms Normal sinus rhythm Nonspecific T wave abnormality Abnormal ECG Confirmed by VALENTINE DISLA, BESSIE ([id number]), publications editor OPHELIA TORRES ([id number]) on 03/10/2022 1:43:30 PM Referred By: STANLEY Confirmed By:BESSIE GRIJALVA MD
--- NOTE | 2022-03-09 10:27 | EDS_ITS ---
HPI History of Present Illness Chief Complaint: Chest Pain Informant: patient Narrative Narrative: Patient presents with episode of chest pressure. 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 She got which she describes as a heaviness or pressure across the anterior portion of her chest. It did go a little bit toward her left shoulder. She felt lightheaded as if she was going to pass out. A customer helped her sit down. She did have shortness of breath and mild nausea but no diaphoresis. She has never had an episode like this before. She has a very minimal discomfort near the anterior chest left shoulder area now. But none of the other symptoms. She does not have a history of heart disease. However, she does have a history of a stroke affecting her right side in 2008. She is still a smoker. She has family history of heart disease as early as the 50s. She has high cholesterol and high blood pressure. Nothing specifically initiated or made the symptoms better. She has already had aspirin. She felt fine prior to the event. [facility] Medical History (Updated 03/09/22 @ 13:[address] Aristides Singh MD) History of depression History of stroke HTN (hypertension) Hyperlipidemia Hypothyroidism Lung mass Ovarian cancer Tobacco abuse Home Medications buspirone 10 mg PO DAILY 11/29/15 [History Last Taken 01/13/20] cholecalciferol (vitamin D3) 1,000 unit PO DAILY 11/29/15 [History Last Taken 01/13/20] levothyroxine 50 mcg PO DAILY 11/29/15 [History Last Taken 01/13/20] simvastatin 40 mg PO QHS 11/29/15 [History Last Taken 01/13/20] venlafaxine 150 mg PO DAILY 11/29/15 [History Last Taken 01/13/20] aspirin 81 mg PO DAILY@0800 05/04/17 [History Last Taken 01/13/20] lorazepam 0.5 mg PO TID PRN #9 tab 01/17/20 [Rx Last Taken Unknown] hydrochlorothiazide 12.5 mg capsule 12.5 mg PO DAILY 04/04/21 [History Last Taken Unknown] isosorbide mononitrate 30 mg tablet,extended release 24 hr 30 mg PO DAILY 04/04/21 [History Last Taken Unknown] metoprolol succinate 25 mg tablet,extended release 24 hr 25 mg PO DAILY 04/04/21 [History Last Taken Unknown] nitroglycerin 0.4 mg sublingual tablet 0.4 mg SUBLINGUAL Q5-15M PRN 04/04/21 [History Last Taken Unknown] rosuvastatin 40 mg tablet 40 mg PO DAILY 04/04/21 [History Last Taken Unknown] Allergy/AdvReac Type Severity Reaction Status Date / Time No Known Allergies Allergy Verified 03/09/22 10:08 Family History Unknown Heart disease Surgical History H/O: hysterectomy Social History (Updated 03/09/22 @ 13:[address] Suri Guerra DO) current occupational status: employed Smoking Status: Current every day smoker tobacco type: cigarettes Smoking packs per day: 0.75 Smoking cigarettes per day: 15.0 quit status: considering quitting alcohol intake: current alcohol intake frequency: a few times a month substance use type: does not use what type of physical activity do you participate in: none ROS ROS ED Constitutional Constitutional ED: Denies chills or fever(s) Eyes Eyes: Denies blurry vision ENT ENT ED: Denies rhinorrhea Cardiovascular Cardiovascular: Reports as per HPI and chest pain Respiratory/Chest Respiratory/Chest: Reports dyspnea Gastrointestinal Gastrointestinal: Reports nausea; Denies abdominal pain or vomiting Musculoskeletal Musculoskeletal: Denies back pain or neck pain Integumentary Denies rash Neurologic Neurologic: Reports other Details: Patient had prior stroke mostly involving the right side but no acute change. ; Denies headache(s), paresthesias or weakness Endocrine Endocrinology: Denies polydipsia or polyuria Hematologic/Lymphatic Hematologic/Lymphatic: Denies easy bleeding or easy bruising Allergic/Immunologic Allergic/Immunologic ED: Denies urticaria EXAM Physical Exam Const Vital Signs: 03/09/22 10:02 03/09/22 10:10 03/09/22 10:35 Temperature 98.2 F Temperature Source Oral Pulse Rate 87 Respiratory Rate 13 Respiratory Effort Normal Non-Labored Blood Pressure Blood Pressure Mean Pulse Ox 95 Oxygen Delivery Method Room Air Room Air 03/09/22 11:00 03/09/22 12:00 Temperature Temperature Source Pulse Rate 70 67 Respiratory Rate 19 H 18 Respiratory Effort Blood Pressure 124/81 H 120/76 Blood Pressure Mean 95 90 Pulse Ox 96 96 Oxygen Delivery Method Room Air Room Air Positive well nourished and well developed General Appearance ED: well developed and NAD HEENT Reports moist mucous membranes Eyes General Eye ED: Negative for pale conjunctiva or scleral icterus Neck no JVD Chest Wall inspection of chest normal Resp normal respiratory effort and clear to auscultation bilaterally Resp Narrative: At first I heard a few crackles at the right base but that was the first breath. They cleared with further deep breaths. Effort and Inspection: Negative for respiratory distress Auscultation: Negative for rales, rhonchi or wheezes Cardio regular rate, regular rhythm and S1 normal heart sound GI normal to inspection, nondistended, normoactive bowel sounds Back/Spine no CVA tenderness Extremity normal to inspection General Extremety ED: Negative for edema or tenderness General Extremity: Negative for edema Neuro oriented x3 Neuro Narrative: Residual right upper extremity primarily weakness from prior stroke Sensorium / Orientation: awake and alert Psych mental status grossly normal Skin no rashes or lesions noted Heart Score History: Moderately Suspicious ECG: Nonspecific Repolarization Age: >45 - <65 years Risk Factors: >/= 3 Risk Factors or History of CAD Troponin: </= Normal Limit Score: 5 MDM MDM MDM Narrative Medical decision making narrative: Patient is a heart score of 5. She later thinks that her family may not have had heart disease till 70s but she had told me in 50s and 60s. Her CBC is overall normal. Electrolytes look good troponin is negative at this point but she just had symptoms. Chest x-ray is normal. My concern is that this patient has a concerning story with nonspecific EKG changes and risk factors for heart disease. I discussed this with her and explained that we would normally keep her in the hospital for further evaluation. She was okay with that. Hospitalist came down to talk to her. At that point she wanted to leave and go home. The hospitalist went over these issues with her and told her how important this is. Patient was able to contact some family members and she has happily agreed to stay. Lab Data Attestation: I reviewed the patient's lab results. Labs: Laboratory Results - last 24 hr 03/09/22 03/09/22 09:45 09:45 WBC 9.1 RBC 5.07 Hgb 14.5 Hct 44.4 MCV 87.6 MCH 28.6 MCHC 32.7 RDW Std Deviation 41.1 RDW Coeff of Gabriel 12.9 Plt Count 336 MPV 9.8 Immature Gran % (Auto) 0.200 Neut % (Auto) 67.5 Lymph % (Auto) 24.7 Early % (Auto) 6.1 Eos % (Auto) 0.7 Baso % (Auto) 0.8 Absolute Neuts (auto) 6.2 Absolute Lymphs (auto) 2.25 Nucleated RBC % 0 Sodium 139 Potassium 3.6 Chloride 105 Carbon Dioxide 27.0 Anion Gap 7 BUN 15 Creatinine 1.00 Estim Creat Clear Calc 57.45 Est GFR (MDRD) Af Amer 72 Est GFR (MDRD) Non-Af 60 BUN/Creatinine Ratio 15.0 Glucose 100 Calcium 9.1 Troponin I High Sens < 3 L Radiography Diagnostic Testing: Clinical Impression(s) from Imaging Studies Chest X-Ray 03/09/22 10:45 IMPRESSION: Normal x-ray examination of the chest. Electronically Signed: Pepe Baires MD at 11:10 EDT , EKG Initial EKG: Comments: EKG done for chest pain read by me shows a normal sinus rhythm with overall rate of 85. No ectopy. There are some diffuse nonspecific ST and T wave changes but no sign of infarct. [place] interval, QRS duration and QTc normal. The nonspecific ST and T wave changes are relatively new since January 2020. Discharge Plan Triage Chief Complaint: Chest Pain ED Provider: Aristides Singh Dx/Rx/DC Orders Clinical Impression: Chest pain Primary Care Provider: Nasim Tavarez Disposition Disposition: Acute Care Hospital [facility]
--- NOTE | 2022-03-09 10:45 | RAD_ITS ---
STUDY: X-RAY CHEST REASON FOR EXAM: Female, 61 years old. Chest pain TECHNIQUE: Single AP portable view of the chest. COMPARISON: Comparison is made with prior study dated 01/13/2020. FINDINGS: EKG electrodes are seen. The lungs are clear and expanded. There is no demonstrated pleural abnormality. Normal size heart. Normal mediastinum and maria dolores. Normal visualized pulmonary arteries. Normal visualized aortic arch and descending thoracic aorta. Normal visualized thoracic spine. Normal visualized ribs, clavicles, and shoulders. There is no demonstrated abnormality of the visualized soft tissue structures of the upper abdomen. RAD/Chest 1 View (Portable) IMPRESSION: Normal x-ray examination of the chest. Electronically Signed: Pepe Baires MD at 11:10 EDT ,
[2022-03-09 10:47] LABS: Absolute Lymphocyte Count 2.25 X10^3/uL (0.83-4.51); Absolute Neutrophil Count 6.2 X10^3/uL (2.0-7.7); Basophil# 0.07 X10^3/uL; Basophil% 0.8 % (0-1); Eosinophil# 0.06 X10^3/uL; Eosinophils% 0.7 % (0-5); Hematocrit 44.4 % (37-47); Hemoglobin 14.5 g/dL (12.0-15.0); Lymphocyte # 2.25 X10^3/ul (0.83-4.51); Lymphocyte % 24.7 % (19-41); Mean Corp Hgb Conc 32.7 g/dL (32-36); Mean Corpuscular Hgb 28.6 pg (27.0-32.0); Mean Corpuscular Volume 87.6 fL (81-99); Mean Platelet Vol. 9.8 fl (6.2-12.0); Monocyte# 0.56 X10^3/uL; Monocyte% 6.1 % (0-10); NRBC Flagged by Analyzer 0 % (0-5); Neutrophil # 6.16 X10^3/uL (2.7-7.7); Neutrophil % 67.5 % (47-70); Platelet Count 336 K/mm3 (150-450); RBC Distribution Width CV 12.9 % (11.6-14.6); RBC Distribution Width SD 41.1 fl (35.1-43.9); Red Blood Count 5.07 M/mm3 (4.2-5.4); White Blood Count 9.1 K/mm3 (4.4-11.0)
[2022-03-09 11:12] LABS: Anion Gap 7 (5-15); BUN 15 mg/dL (7-18); Calcium,Total 9.1 mg/dL (8.5-10.1); Chloride 105 mmol/L (98-107); EST Glomerular Filtration Rate 60 mL/min (>60); Est Glom Filt Rate - Afr Amer 72 mL/min (>60); Estimated Creatinine Clearance 57.45 ml/min; Glucose 100 mg/dL (74-106); Potassium 3.6 mmol/L (3.5-5.1); Sodium Level 139 mmol/L (136-145); Troponin-I HS (w/2H Reflex) < 3 pg/mL (3.0-54.0)
[2022-03-09 12:43] LABS: Reflex Troponin-HS? (from REC) Y
--- NOTE | 2022-03-09 13:08 | NURSING ---
pcu obs gustavo chest pain
--- NOTE | 2022-03-09 13:33 | HP.PCM.HOS_ITS ---
HPI - General General Date of Admission: 03/09/22 HPI Narrative ALEX LYNN, is a 61 F who presented to the emergency department [facility] on 03/09/2022 with a chief complaint of presyncope and chest pain. 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 She did not have a syncopal episode but once she sat down she started having heaviness in her chest in the anterior portion and it radiated to both shoulders. She had some associated shortness of breath and nausea but no vomiting or diaphoresis. She denies any previous episodes like this but does states she has a significant family history of heart disease. She initially told the ER physician that she had multiple family members who in their 50s however she told me her family members were in their 70s when they of heart disease. She has a history of a stroke affecting her right side which occurred in 2008 and was told it was from Premarin. She has a history of and ongoing tobacco abuse of slightly over 1/2 pack of cigarettes daily as well as hypertension and hyperlipidemia. She stated initially that her symptoms had resolved about the time she arrived the emergency department, however upon reevaluation as she initially was not clear on whether she wanted to stay in the hospital or not, she reported she was having ongoing chest pressure that never resolved. Vital signs emergency department show temperature of 98.2, heart rate of 87, respiratory rate of 13, pulse ox was 95% on room air. Her CBC was unremarkable. Her CMP is unremarkable. Her initial troponin was less than 3 with a repeat less than 3. Her EKG when compared to previous 2 years ago showed some mild T wave flattening in the anterior and lateral leads but no specific changes consistent with acute ischemia. Her chest x-ray was unremarkable. Given a heart score of 5, she was admitted to PCU for a stress test to be done tomorrow. [facility]LY [facility] Medical History (Updated 03/09/22 @ 13:[address] Suri Guerra DO) History of depression History of stroke HTN (hypertension) Hyperlipidemia Hypothyroidism Lung mass Ovarian cancer Tobacco abuse Home Medications buspirone 10 mg PO DAILY 11/29/15 [History Last Taken 01/13/20] cholecalciferol (vitamin D3) 1,000 unit PO DAILY 11/29/15 [History Last Taken 01/13/20] levothyroxine 50 mcg PO DAILY 11/29/15 [History Last Taken 01/13/20] simvastatin 40 mg PO QHS 11/29/15 [History Last Taken 01/13/20] venlafaxine 150 mg PO DAILY 11/29/15 [History Last Taken 01/13/20] aspirin 81 mg PO DAILY@0800 05/04/17 [History Last Taken 01/13/20] lorazepam 0.5 mg PO TID PRN #9 tab 01/17/20 [Rx Last Taken Unknown] hydrochlorothiazide 12.5 mg capsule 12.5 mg PO DAILY 04/04/21 [History Last Taken Unknown] isosorbide mononitrate 30 mg tablet,extended release 24 hr 30 mg PO DAILY 04/04/21 [History Last Taken Unknown] metoprolol succinate 25 mg tablet,extended release 24 hr 25 mg PO DAILY 04/04/21 [History Last Taken Unknown] nitroglycerin 0.4 mg sublingual tablet 0.4 mg SUBLINGUAL Q5-15M PRN 04/04/21 [History Last Taken Unknown] rosuvastatin 40 mg tablet 40 mg PO DAILY 04/04/21 [History Last Taken Unknown] Allergy/AdvReac Type Severity Reaction Status Date / Time No Known Allergies Allergy Verified 03/09/22 10:08 Family History Unknown Heart disease Surgical History H/O: hysterectomy Social History (Updated 03/09/22 @ 13:[address] Suri Guerra DO) current occupational status: employed Smoking Status: Current every day smoker tobacco type: cigarettes Smoking packs per day: 0.75 Smoking cigarettes per day: 15.0 quit status: considering quitting alcohol intake: current alcohol intake frequency: a few times a month substance use type: does not use what type of physical activity do you participate in: none ROS Constitutional Constitutional: Reports fatigue; Denies anorexia, change in weight, chills, fever(s), malaise, night sweats, weakness or other Eyes Eyes: Denies blurry vision, change in eye color, change in vision, discharge from eye(s), double vision, erythema, eye pain, loss of vision or other ENT HEENT: Denies abnormal hearing, dysphagia, ear pain, epistaxis, headache(s), hearing loss, nasal congestion, nasal discharge, post nasal drip, sinus pressure, sore throat or other Cardiovascular Cardiovascular: Reports lightheadedness and other Details: Chest pressure ; Denies chest pain, claudication, dyspnea on exertion, edema, orthopnea, palpitations, paroxysmal nocturnal dyspnea, rapid heart rate or syncope Respiratory/Chest Respiratory/Chest: Reports shortness of breath at rest; Denies cough, dyspnea, excessive phlegm production, hemoptysis, productive cough, shortness of breath with exertion, wheezing or other Gastrointestinal Gastrointestinal: Reports nausea; Denies abdominal pain, coffee ground emesis, constipation, diarrhea, dyspepsia, hematemesis, hematochezia, loose stools, melena, vomiting or other Genitourinary Genitourinary: Denies burning urination, difficulty urinating, dysuria, hematuria, nocturia, urinary frequency, urinary hesitancy, urinary incontinence, urinary urgency or other Musculoskeletal Musculoskeletal: Denies arthralgias, back pain, joint pain, joint stiffness, joint swelling, myalgias, neck pain or other Neurologic Neurologic: Denies abnormal gait, abnormal speech, confusion, disequilibrium, dizziness, focal weakness, headache(s), numbness, paresthesias, seizure-like activity, seizures, syncope, tingling, tremor(s) or other Psychiatric Psychiatric: Denies anxiety, depression, homicidal ideation, suicidal ideation or other Endocrine Endocrinology: Denies change in body appearance, cold intolerance, excessive sweating, heat intolerance, polydipsia, polyuria or other Hematologic/Lymphatic Hematologic/Lymphatic: Denies anemia, easy bleeding, easy bruising, lymphadenopathy or other Allergic/Immunologic Allergic/Immunologic: Denies rhinitis, hives, eczemia, asthma or other Vital Signs Vital Signs Vital Signs: 03/09/22 10:02 03/09/22 10:10 03/09/22 10:35 Temperature 98.2 F Temperature Source Oral Pulse Rate 87 Respiratory Rate 13 Respiratory Effort Normal Non-Labored Blood Pressure Blood Pressure Mean Pulse Ox 95 Oxygen Delivery Method Room Air Room Air 03/09/22 11:00 03/09/22 12:00 03/09/22 13:00 Temperature Temperature Source Pulse Rate 70 67 Respiratory Rate 19 H 18 Respiratory Effort Blood Pressure 124/81 H 120/76 Blood Pressure Mean 95 90 Pulse Ox 96 96 Oxygen Delivery Method Room Air Room Air Room Air 03/09/22 13:18 Temperature 98.0 F Temperature Source Oral Pulse Rate 68 Respiratory Rate 18 Respiratory Effort Blood Pressure 147/90 H Blood Pressure Mean 109 Pulse Ox 97 Oxygen Delivery Method Room Air Weight Weight: 67.8 kg Body Mass Index (BMI) 23.3 Physical Exam Const alert, oriented x3, no apparent distress, average body habitus and well nourished Constitutional Narrative: Upper middle-aged white female sitting up in bed, appears older than stated age, nontoxic appearing General Appearance: cooperative HEENT normocephalic, head/scalp atraumatic, hearing grossly normal bilaterally and moist oral mucous membranes HEENT Narrative: Poor dentition/edentulous, no thrush, Mallampati 2 Eyes PERRL, EOMs intact bilaterally and conjunctivae normal Eyes Narrative: No scleral icterus Neck no lymphadenopathy, supple, no JVD and no carotid bruits Neck Narrative: Trachea midline, no thyroid enlargement Resp normal respiratory effort, no retractions, no use of accessory muscles and clear to auscultation bilaterally Resp Narrative: Diminished diffusely but clear Auscultation: Negative for crackles, rales, rhonchi or wheezes Cardio regular rate, regular rhythm, S1 normal heart sound, S2 normal heart sound, no murmurs, no rub, no gallops, no clicks and no JVD GI normal to inspection, nondistended, normoactive bowel sounds, soft to palpation, non-tender and non-distended; Negative for hepatosplenomegaly Extremity no clubbing, cyanosis or edema Peripheral Pulses: Yes pulses 2+ throughout Skin no rashes or lesions noted, no wounds, skin turgor normal, no jaundice, no petechiae and no mottling Neuro oriented x3, CN's II-XII intact bilaterally, moves all extremities and No no focal motor deficits Neuro Narrative: Right upper extremity hemiparesis with some movement more proximally than distally otherwise neurologically intact Sensorium / Orientation: awake and alert Speech: speech normal Psych Psych Narrative: Affect is slightly flat Results Lab / Micro Data Attestation: I reviewed the patient's lab results. Result Diagrams: 03/09/22 09:45 03/09/22 09:45 Labs: Laboratory Results - last 24 hr 03/09/22 09:45: WBC 9.1, RBC 5.07, Hgb 14.5, Hct 44.4, MCV 87.6, MCH 28.6, MCHC 32.7, RDW Std Deviation 41.1, RDW Coeff of Gabriel 12.9, Plt Count 336, MPV 9.8, Immature Gran % (Auto) 0.200, Neut % (Auto) 67.5, Lymph % (Auto) 24.7, [place] % (Auto) 6.1, Eos % (Auto) 0.7, Baso % (Auto) 0.8, Absolute Neuts (auto) 6.2, Absolute Lymphs (auto) 2.25, Nucleated RBC % 0 03/09/22 09:45: Sodium 139, Potassium 3.6, Chloride 105, Carbon Dioxide 27.0, Anion Gap 7, BUN 15, Creatinine 1.00, Estim Creat Clear Calc 57.45, Est GFR (MDRD) Af Amer 72, Est GFR (MDRD) Non-Af 60, BUN/Creatinine Ratio 15.0, Glucose 100, Calcium 9.1, Troponin I High Sens < 3 L Radiology Impression Chest X-Ray 03/09/22 10:45 IMPRESSION: Normal x-ray examination of the chest. Electronically Signed: Pepe Baires MD at 11:10 EDT , Assessment & Plan Assessment/Plan (1) Chest pain: QUALIFIERS: Chest pain type: unspecified Qualified Code(s): R07.9 - Chest pain, unspecified PLAN: Chest pain -Seems somewhat atypical -Initial and delta troponin are normal at less than 3--> we will cycle cardiac enzymes -Treadmill stress test in a.m. -Aspirin 81 mg daily -Continue home statin and check a.m. lipids -Recommend tobacco cessation -EKG shows subtle T wave flattening in the anterior lateral leads compared to previous Hypertension -Continue metoprolol -Continue Imdur -Continue hydrochlorothiazide Hyperlipidemia -Continue rosuvastatin Hypothyroidism -Check TSH -Continue levothyroxine History of stroke -Patient indicates that it was from her being on hormonal supplementation with Premarin -Has persistent right upper extremity hemiparesis -No other focal deficits at baseline -Continue home aspirin Stable pulmonary nodule -Patient follows with Dr. Martinez as an outpatient -This has been stable upon monitoring thus far -Continue outpatient follow-up as ordered Tobacco abuse -Recommend cessation -Patient denies need for nicotine replacement therapy Depression/anxiety -Continue home BuSpar and venlafaxine DVT prophylaxis -Lovenox CODE STATUS -Full code Charges/Coding Visit Charges Inpatient E&M: 35521 Init Hosp L3
[2022-03-09 13:35] LABS: Troponin-I HS < 3 pg/mL (3.0-54.0)
--- NOTE | 2022-03-09 14:27 | EKG12_ITS ---
Test Reason : AM EKG Blood Pressure : / mmHG Vent. Rate : 069 BPM Atrial Rate : 069 BPM P-R Int : 164 ms QRS Dur : 086 ms QT Int : 444 ms P-R-T Axes : 067 059 071 degrees QTc Int : 475 ms Normal sinus rhythm Normal ECG Confirmed by VALENTINE DISLA, BESSIE ([id number]), editor managing newspaper OPHELIA TORRES ([id number]) on 03/11/2022 8:55:18 AM Referred By: RAVINDRA Confirmed By:BESSIE GRIJALVA MD
[2022-03-09 16:47] LABS: Troponin-I HS < 3 pg/mL (3.0-54.0)
[2022-03-09] MEDS: Ondansetron 4 MG/2 ML Vial IV (21:05)
[2022-03-09] MEDS: Morphine 2 MG/ML Syringe IV (21:05)
[2022-03-09] MEDS: 0.9% Saline Lock 10 ML Syringe IV (21:06)
[2022-03-09] MEDS: Atorvastatin Calcium 80 MG Tablet PO (21:25)
[2022-03-10] VITALS (8 sets, daily range): BP systolic 100–128; BP diastolic 58–70; PULSE 63–77; RESP 16–18; TEMP 36.2–36.8; O2SAT 94–100
[2022-03-10] MEDS: Morphine 2 MG/ML Syringe IV (02:25)
[2022-03-10] MEDS: 0.9% Saline Lock 10 ML Syringe IV ×2 (02:25→11:25)
[2022-03-10] MEDS: Aspirin E.C. 81 MG Tablet PO (05:35)
[2022-03-10] MEDS: Levothyroxine 50 MCG Tablet PO (05:35)
--- NOTE | 2022-03-10 05:55 | EKG12_ITS ---
Test Reason : Blood Pressure : / mmHG Vent. Rate : 066 BPM Atrial Rate : 066 BPM P-R Int : 150 ms QRS Dur : 080 ms QT Int : 436 ms P-R-T Axes : 055 055 072 degrees QTc Int : 457 ms Normal sinus rhythm Normal ECG Confirmed by VALENTINE DISLA, BESSIE ([id number]), writer editor OPHELIA TORRES ([id number]) on 03/11/2022 8:56:18 AM Referred By: RAVINDRA Confirmed By:BESSIE GRIJALVA MD
[2022-03-10 06:49] LABS: Absolute Lymphocyte Count 2.25 X10^3/uL (0.83-4.51); Absolute Neutrophil Count 2.9 X10^3/uL (2.0-7.7); Basophil# 0.07 X10^3/uL; Basophil% 1.2 % (0-1); Eosinophils% 1.7 % (0-5); Hematocrit 43.7 % (37-47); Hemoglobin 13.8 g/dL (12.0-15.0); Lymphocyte # 2.25 X10^3/ul (0.83-4.51); Lymphocyte % 38.9 % (19-41); Mean Corp Hgb Conc 31.6 g/dL (32-36); Mean Corpuscular Hgb 28.5 pg (27.0-32.0); Mean Corpuscular Volume 90.3 fL (81-99); Mean Platelet Vol. 9.3 fl (6.2-12.0); Monocyte# 0.45 X10^3/uL; Monocyte% 7.8 % (0-10); NRBC Flagged by Analyzer 0 % (0-5); Neutrophil # 2.91 X10^3/uL (2.7-7.7); Neutrophil % 50.2 % (47-70); Platelet Count 261 K/mm3 (150-450); RBC Distribution Width CV 12.8 % (11.6-14.6); RBC Distribution Width SD 42.5 fl (35.1-43.9); Red Blood Count 4.84 M/mm3 (4.2-5.4); White Blood Count 5.8 K/mm3 (4.4-11.0)
[2022-03-10 07:24] LABS: ALB/GLOB Ratio 1.1 RATIO (0.9-2.4); AST(SGOT) 14 U/L (15-37); Alanine Aminotransfer ALT/SGPT 25 U/L (13-56); Albumin, Serum 3.2 g/dL (3.2-5.0); Alkaline Phosphatase 72 U/L (45-117); Anion Gap 4 (5-15); BUN 18 mg/dL (7-18); BUN/Creat Ratio 18.8 RATIO (10-20); Calcium,Total 8.7 mg/dL (8.5-10.1); Chloride 109 mmol/L (98-107); Cholesterol 123 mg/dL (200); Creatinine, Serum 0.96 mg/dL (0.55-1.02); EST Glomerular Filtration Rate 63 mL/min (>60); Est Glom Filt Rate - Afr Amer 76 mL/min (>60); Estimated Creatinine Clearance 59.84 ml/min; Glucose 95 mg/dL (74-106); High Density Lipoprotein 45 mg/dL; Magnesium 2.2 mg/dL (1.6-2.6); Potassium 4.1 mmol/L (3.5-5.1); Protein, Total 6.2 g/dL (6.4-8.2); Sodium Level 141 mmol/L (136-145); Triglycerides 148 mg/dL; Very Low Density Lipoprotein 30 mg/dL (5-40)
--- NOTE | 2022-03-10 08:08 | NURSING ---
Patient does not normally wear oxygen at home, placed on 2L by nightshift RN for CP protocol.
[2022-03-10] MEDS: busPIRone 5 MG Tablet 10 MG PO (11:24)
[2022-03-10] MEDS: Metoprolol(XL)Succ 25 MG Tablet PO (11:24)
[2022-03-10] MEDS: Cholecalciferol (VIT D3) 25 MCG TABLET (1,000 UNITS) PO (11:24)
[2022-03-10] MEDS: hydroCHLOROthiazide 12.5mg 12.5 MG PO (11:24)
[2022-03-10] MEDS: Isosorbide Mononitrate 30 MG Tablet PO (11:24)
[2022-03-10] MEDS: Venlafaxine XR 150 MG Capsule PO (11:25)
--- NOTE | 2022-03-10 12:13 | STRESSREP ---
Stress Test Report Date: 03-10-2022 Procedure: Pharmacologic stress nuclear imaging study Indications: Chest pain; history of CVA; history of lung mass Consent: Per the patient Procedure: The patient underwent pharmacologic (Regadenoson 0.4mg ) evaluation with a peak heart rate of 100 beats per minute (62%predicted maximal heart rate) and a peak blood pressure of 122/72 mmHg. The baseline ECG demonstrated normal sinus rhythm. The peak pharmacologic ECG demonstrated no obvious ECG changes. There were no cardiac dysrhythmias pretest, during pharmacologic infusion, or recovery. There was no complaint of chest discomfort during pharmacologic infusion or recovery. The examination was discontinued secondary to completion of protocol. Impression: 1. Pharmacologic (Regadenoson) evaluation 2. Peak pharmacologic ECG with no obvious ECG changes. 3. There were no cardiac dysrhythmias pretest, during pharmacologic infusion, or recovery. 4. Nuclear images pending Myocardial perfusion imaging study: Technique: The patient was injected with 12.0 millicuries of technetium 99m Cardiolite and subsequently rest SPECT Cardiolite nuclear imaging was obtained in the horizontal long, vertical long, and short axis views. The patient underwent pharmacologic (Regadenoson) evaluation with a peak heart rate of 100 beats per minute (62% percent predicted maximal heart rate) and a peak blood pressure of 122/72 mmHg. The patient was injected with 34.6 millicuries of technetium 99m Cardiolite and subsequently stress SPECT Cardiolite nuclear imaging was obtained in the horizontal long, vertical long, and short axis views. A gated Cardiolite study at peak stress was obtained. Interpretation: Rest and stress SPECT Cardiolite nuclear imaging status post realignment, normalization, and attenuation correction demonstrate relative uniform tracer uptake and myocardial perfusion appearing within normal limits. There is end systolic thickening and brightening. The gated Cardiolite study demonstrates myocardial thickening and inward wall motion. The reported LVEF is 30%. (Question accuracy of LVEF) Impression: 1. Rest and stress SPECT Cardiolite nuclear imaging demonstrate relative uniform tracer uptake and myocardial perfusion appearing within normal limits. 2. The gated Cardiolite study reports an LVEF of 30%. (Question accuracy of LVEF) Consider further evaluation of left ventricular wall motion and systolic function/LVEF with transthoracic echocardiogram if clinically indicated. This note was generated with [employer] software. It may contain incorrect words, spelling, and punctuation that were not noted in checking the note before signing.
--- NOTE | 2022-03-10 12:20 | DS.PCM_ITS ---
Providers Date of Admission: 03/09/22 Date of Discharge: 03/10/22 Primary Care Physician: Dr. Nasim Tavarez DO Reason For Visit: CHEST PAIN Diagnosis Discharge Diagnosis (1) Chest pain: Status: Acute Code(s): R07.9 - Chest pain, unspecified Qualifiers: Chest pain type: unspecified Qualified Code(s): R07.9 - Chest pain, unspecified Medications at Discharge Home Medications buspirone 10 mg PO DAILY 11/29/15 cholecalciferol (vitamin D3) 1,000 unit PO DAILY 11/29/15 levothyroxine 50 mcg PO DAILY 11/29/15 simvastatin 40 mg PO DAILY 11/29/15 venlafaxine 150 mg PO DAILY 11/29/15 aspirin 81 mg PO DAILY@0800 05/04/17 lorazepam 0.5 mg PO TID PRN #9 tab 01/17/20 hydrochlorothiazide 12.5 mg capsule 12.5 mg PO DAILY 04/04/21 isosorbide mononitrate 30 mg tablet,extended release 24 hr 30 mg PO DAILY 04/04/21 metoprolol succinate 25 mg tablet,extended release 24 hr 25 mg PO DAILY 04/04/21 nitroglycerin 0.4 mg sublingual tablet 0.4 mg SUBLINGUAL Q5-15M PRN 04/04/21 Hospital Course Operations None Procedures 2-D Echocardiogram, EKG and Stress test Summary of Care Provided Minutes Spent on Discharge: 37 Hospital Course: Ms. Garcia is a 61-year-old white female who presented to emergency department [facility] on 03/09/2022 with a chief complaint of a presyncopal episode and chest pain. 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 She did not have a syncopal episode but when she sat down she started feeling better with regards to her lightheadedness but then began having chest heaviness. It occurred in the anterior portion of her chest and radiated to both shoulders. She reported she had some associated shortness of breath and nausea but no vomiting or diaphoresis. She denied any previous episodes like this before but did indicate she had a significant family history of heart disease. She has a history of a stroke that affected the right side which occurred in 2008. She was told it was from taking Premarin. She had no further issues with regards to this. She also reported a history of ongoing tobacco abuse, hypertension, and hyperlipidemia. She reported that her symptoms resolved at the time she arrived to the emergency department however upon reevaluation she reported that she was having ongoing chest pressure. Vital signs in the emergency department were unremarkable. Her CBC was unremarkable throughout her stay. Her CMP was unremarkable throughout her course. Troponins were cycled and were less than 3 with each lab draw x3. Her EKG initially showed some mild T wave flattening in the inferior leads and lateral leads however repeat EKG showed resolution of this and I suspect it was more related to lead placement than anything else. Her heart score was 5 and she was therefore admitted for rule out stress test. She was able to perform a treadmill stress test which showed uniform tracer uptake and myocardial perfusion that appeared normal however her EF was reported at 30% and there was documentation of questionable accuracy of the LVEF and therefore an echocardiogram was performed. Her echo showed a EF of 60% with trivial mitral valve, tricuspid valve, and aortic valve insufficiency and no diastolic dysfunction. The etiology of her symptoms was not able to be ascertained. Her thyroid studies were normal. Her lipid studies were normal. And she was otherwise asymptomatic throughout her hospitalization. Her telemetry revealed no arrhythmias. She was able to be discharged home in stable condition on 03/10/2022. She was instructed to follow-up with her primary care physician within the next 2 weeks. We did recommend tobacco cessation both on admission and at discharge. Discharge diagnoses: Chest pain-resolved Hypertension Hyperlipidemia Hypothyroidism History of stroke Stable pulmonary nodule Tobacco abuse Depression Anxiety Physical Exam Const alert, oriented x3, no apparent distress, average body habitus and well nourished Constitutional Narrative: Upper middle-aged white female sitting up in bed, appears older than stated age, nontoxic appearing General Appearance: cooperative, comfortable, well kempt, well developed and appears older than stated age Exam Limitations: no limitations HEENT normocephalic, head/scalp atraumatic, hearing grossly normal bilaterally and moist oral mucous membranes HEENT Narrative: Edentulous, Mallampati 2, no thrush Eyes PERRL, EOMs intact bilaterally and conjunctivae normal Eyes Narrative: No scleral icterus Neck no lymphadenopathy, supple, no JVD and no carotid bruits Neck Narrative: Trachea midline, no thyroid enlargement Resp normal respiratory effort, no retractions, no use of accessory muscles and clear to auscultation bilaterally Resp Narrative: Diminished diffusely but clear Auscultation: Negative for crackles, rales, rhonchi or wheezes Cardio regular rate, regular rhythm, S1 normal heart sound, S2 normal heart sound, no murmurs, no rub, no gallops, no clicks and no JVD GI normal to inspection, nondistended, normoactive bowel sounds, soft to palpation, non-tender and non-distended; Negative for hepatosplenomegaly Extremity no clubbing, cyanosis or edema Extremity Narrative: 2+ pedal pulses Skin no rashes or lesions noted, no wounds, skin turgor normal, no jaundice, no petechiae and no mottling Neuro oriented x3, CN's II-XII intact bilaterally, moves all extremities and No no focal motor deficits Neuro Narrative: Right upper extremity hemiparesis with some movement more proximally than distally otherwise neurologically intact Sensorium / Orientation: awake and alert Speech: speech normal Psych Psych Narrative: Affect is slightly flat but patient more interactive and seems to be less flat today Weight / BMI Weight Weight: 64.41 kg Body Mass Index (BMI) 22.2 ABG / Lab / Microbiology Data Result Diagrams: 03/10/22 06:30 03/10/22 06:30 Laboratory: Laboratory Results - last 24 hr 03/09/22 13:05: Troponin I High Sens < 3 L 03/09/22 15:16: Troponin I High Sens < 3 L 03/10/22 06:30: WBC 5.8, RBC 4.84, Hgb 13.8, Hct 43.7, MCV 90.3, MCH 28.5, MCHC 31.6 L, RDW Std Deviation 42.5, RDW Coeff of Gabriel 12.8, Plt Count 261, MPV 9.3, Immature Gran % (Auto) 0.200, Neut % (Auto) 50.2, Lymph % (Auto) 38.9, [place] % (Auto) 7.8, Eos % (Auto) 1.7, Baso % (Auto) 1.2 H, Absolute Neuts (auto) 2.9, Absolute Lymphs (auto) 2.25, Nucleated RBC % 0 03/10/22 06:30: Sodium 141, Potassium 4.1, Chloride 109 H, Carbon Dioxide 28.0, Anion Gap 4 L, BUN 18, Creatinine 0.96, Estim Creat Clear Calc 59.84, Est GFR (MDRD) Af Amer 76, Est GFR (MDRD) Non-Af 63, BUN/Creatinine Ratio 18.8, Glucose 95, Calcium 8.7, Phosphorus 4.0, Magnesium 2.2, Total Bilirubin 0.50, AST 14 L, ALT 25, Alkaline Phosphatase 72, Total Protein 6.2 L, Albumin 3.2, Globulin 3.0, Albumin/Globulin Ratio 1.1, Triglycerides 148, Cholesterol 123, LDL Cholesterol 48, VLDL Cholesterol 30, HDL Cholesterol 45, TSH 3.60 Meaningful Use Info Meaningful Use Diagnoses (Choose all that apply): None applicable Discharge Plan Admission Admit Date/Time: 03/09/22 12:27 Primary Reason for Your Visit: Chest pain Attending Provider: Suri Guerra Primary Care Provider: Nasim Tavarez Discharge Orders/Prescriptions Prescriptions: Continued hydrochlorothiazide 12.5 mg capsule 12.5 mg PO DAILY RF: 0 isosorbide mononitrate 30 mg tablet extended release 24 hr 30 mg PO DAILY RF: 0 metoprolol succinate 25 mg tablet extended release 24 hr 25 mg PO DAILY RF: 0 nitroglycerin 0.4 mg tablet, sublingual 0.4 mg sublingual Q5-15M PRN (Reason: Chest Pain) RF: 0 buspirone 5 MG tablet 10 mg PO DAILY RF: 0 venlafaxine 150 MG capsule 150 mg PO DAILY RF: 0 simvastatin 40 MG tablet 40 mg PO DAILY RF: 0 levothyroxine 50 MCG tablet 50 mcg PO DAILY RF: 0 cholecalciferol (vitamin D3) 1,000 UNIT tablet 1,000 unit PO DAILY RF: 0 aspirin 81 MG tablet 81 mg PO DAILY@0800 RF: 0 lorazepam 0.5 MG tablet 0.5 mg PO TID PRN (Reason: Anxiety) Qty: 9 RF: 0 Referrals / Follow Up: Nasim Tavarez DO [Primary Care Provider] - Within 2 Weeks (Hospital follow-up) Disposition Disposition (needs filled in before D/C Order can be placed): Home, Self Care Charges/Coding Visit Charges Inpatient E&M: 03556 Disch Hosp
--- NOTE | 2022-03-10 12:21 | ECHOD_ITS ---
Reason For Study: CHF Procedure This was a 2D Doppler, Color Flow transthoracic echocardiogram. The exam was of adequate technical quality. Exam performed portable in patient room. Left Ventricle Normal LV size. Left ventricular systolic function is normal. The estimated ejection fraction is 60 %. No evidence for diastolic dysfunction. No regional wall motion abnormalities noted. Right Ventricle Normal RV size. Normal systolic function. Atria Normal left atrium. Normal right atrium. No doppler evidence for ASD. Mitral Valve There is no mitral annular calcification. Normal mitral valve. Trivial mitral valve insufficiency. Tricuspid Valve Normal tricuspid valve. Trivial tricuspid valve insufficiency. Unable to estimate RV systolic pressure due to insufficient tricuspid regurgitant envelope. Aortic Valve Trisinus/trileaflet aortic valve. Normal aortic valve. Trivial aortic valve insufficiency. Pulmonic Valve The pulmonic valve is not well visualized. Great Vessels Normal sized aortic root. Pericardium/Pleural No pericardial effusion. MMode/2D Measurements & Calculations RVDd: 2.1 cm Ao root diam: 2.9 cm LAV(MOD-bp): 27.1 ml LAV(MOD-bp) Indexed: 15.6 ml/m2 LAV(MOD-sp2): 20.2 ml LAV(MOD-sp4): 28.1 ml SV(MOD-sp4): 27.9 ml LVAd ap4: 19.3 cm2 LVAd ap2: 20.0 cm2 LVLd ap4: 6.4 cm LVLd ap2: 6.6 cm EDV(MOD-sp4): 49.5 ml EDV(MOD-sp2): 50.6 ml EDV(sp4-el): 49.2 ml EDV(sp2-el): 51.5 ml LVAs ap4: 11.1 cm2 LVAs ap2: 11.5 cm2 LVLs ap4: 4.8 cm LVLs ap2: 5.5 cm ESV(MOD-sp4): 21.6 ml ESV(MOD-sp2): 20.7 ml ESV(sp4-el): 21.6 ml ESV(sp2-el): 20.4 ml EF(MOD-sp4): 56.4 % EF(MOD-sp2): 59.1 % EF(sp4-el): 56.1 % SV(MOD-sp2): 29.9 ml SV(sp4-el): 27.6 ml LA A4 area: 11.1 cm2 RA A4 area: 11.1 cm2 Doppler Measurements & Calculations MV E max enoc: 56.1 cm/sec Lat Peak E' Enoc: 6.2 cm/sec Med Peak E' Enoc: 5.1 cm/sec MV A max enoc: 64.7 cm/sec E/E' lat: 9.1 E/E' med: 11.0 MV E/A: 0.87 Ao V2 max: 85.4 cm/sec AI max enoc: 358.7 cm/sec LV V1 max: 78.7 cm/sec Ao max P.9 mmHg AI max P.5 mmHg LV V1 max P.5 mmHg AI dec slope: 259.7 cm/sec2 AI P1/2t: 404.6 msec [facility] max: 71.7 cm/sec ECHO/Echo Complete Interpretation Summary Left ventricular systolic function is normal. The estimated ejection fraction is 60 %. Trivial mitral valve insufficiency. Trivial tricuspid valve insufficiency. Trivial aortic valve insufficiency. Unable to estimate RV systolic pressure due to insufficient tricuspid regurgita nt envelope. No evidence for diastolic dysfunction. Ordering Physician: Suri Guerra Performed By: Shy Green RCS
[2022-03-10 13:06] LABS: BNP,B-Type NATRIURETIC PEPTIDE 44.7 pg/mL (0-100)
--- NOTE | 2022-03-10 13:43 | PHA.DC.MR ---
Pharmacy Service has performed discharge medication reconciliation for this patient. The patient's discharge medication list was reviewed for discrepancies and discrepancies were resolved. Home Medications buspirone 10 mg PO DAILY 11/29/15 cholecalciferol (vitamin D3) 1,000 unit PO DAILY 11/29/15 levothyroxine 50 mcg PO DAILY 11/29/15 simvastatin 40 mg PO DAILY 11/29/15 venlafaxine 150 mg PO DAILY 11/29/15 aspirin 81 mg PO DAILY@0800 05/04/17 lorazepam 0.5 mg PO TID PRN #9 tab 01/17/20 hydrochlorothiazide 12.5 mg capsule 12.5 mg PO DAILY 04/04/21 isosorbide mononitrate 30 mg tablet,extended release 24 hr 30 mg PO DAILY 04/04/21 metoprolol succinate 25 mg tablet,extended release 24 hr 25 mg PO DAILY 04/04/21 nitroglycerin 0.4 mg sublingual tablet 0.4 mg SUBLINGUAL Q5-15M PRN 04/04/21
[2022-03-10] MEDS: Acetaminophen 325 MG Tablet 650 MG PO (14:55)
--- NOTE | 2022-03-10 15:38 | CHAPLAIN ---
Type of Pastoral Visit _x__ Initial Visit ___ Follow-up Visit ___ On-call Visit ___ General Patient Visit ___ Spiritual Assessment ___ Family Conference ___ Bereavement ___ Rapid Response ___ Code Blue ___ Other (describe below) Pastoral Care Referral From _x__ Patient ___ Family ___ Nurse ___ Physician ___ Sanding Machine Operator Or Tender ___ Side Guider ___ Other (describe below) Sacrament/Intervention _x__ Active listening ___ Anointing ___ Druze ___ Bereavement ___ Communion _x__ Jessica exploration ___ ___ Life review _x__ Prayer ___ Reconciliation ___ Sacrament of Sick _x__ Supportive presence ___ Wedding ___ Other (describe below) Pastoral Comments patient waiting on test results; pt states she is mostly concerned about her mother in the group home as she is primary caregiver and 'rarely ever misses a day with her there'; pt says she has history of stroke and that is why there is concern; pt welcomes someone to talk to and a prayer
== END 2022-03-10 12:19 | disposition home or self-care (01) ==
LOC: ED 12:11 → PCU 12:47
PROVIDERS: Admitting Provider Internal Medicine; Emergency Provider Emergency Medicine; PCP Student in an Organized Health Care Education/Training Program; Visit Provider Internal Medicine
DX: R07.89 Other chest pain (principal); I69.351 Hemiplegia and hemiparesis following cerebral infarction affecting right dominant side; R11.0 Nausea; F17.210 Nicotine dependence, cigarettes, uncomplicated; F32.A Depression, unspecified; R91.1 Solitary pulmonary nodule; F41.9 Anxiety disorder, unspecified; R55 Syncope and collapse; Z79.82 Long term (current) use of aspirin; E78.5 Hyperlipidemia, unspecified; I10 Essential (primary) hypertension; Z79.899 Other long term (current) drug therapy; Z79.890 Hormone replacement therapy; E03.9 Hypothyroidism, unspecified; R06.02 Shortness of breath
CPT/HCPCS: 36415; 71045; 78452; 80048; 80053; 80061; 83735; 83880; 84100; 84443; 84484; 85025; 93005; 93017; 93306; 96374; 96375; 96376; 97802; 99218; 99251; 99285; 99406; A9500; A4216; G0378; G0463; J2405; J2785

== ENCOUNTER → 2022-04-01 | Outpatient (CLI) | payer MEDICARE, SELFPAY ==
--- NOTE | 2022-04-01 12:37 | PFT ---
INTRODUCTION: The patient is a 61-year-old female that presents for pulmonary function studies secondary to a diagnosis of lung nodule. Respiratory therapy reported good patient effort. Bronchodilators were used during testing. INTERPRETATION: Forced expiration spirometry demonstrates no evidence of a large airways obstructive ventilatory defect. There was no significant response to aerosolized bronchodilators. Spirograms are of good quality and plateau normally. The respiratory flow volume loop is normal. Body plethysmography was performed and reveals lung volumes to be within normal limits. Diffusing capacity by single breath CO is also within normal limits. IMPRESSION: Grossly normal pulmonary function studies.
== END | disposition home or self-care (01) ==
PROVIDERS: PCP Student in an Organized Health Care Education/Training Program; Referring Provider Internal Medicine Critical Care Medicine; Visit Provider Internal Medicine Critical Care Medicine
DX: R91.8 Other nonspecific abnormal finding of lung field (principal); Z72.0 Tobacco use
CPT/HCPCS: 94060; 94726; 94729

== ENCOUNTER → 2023-02-09 | Outpatient (CLI) | payer MEDICARE, SELFPAY ==
--- NOTE | 2023-02-09 15:54 | CT_ITS ---
STUDY: LOW DOSE CT LUNG CANCER SCREENING REASON FOR EXAM: Female, 62 years old. Smoker and gt; 40 pack years RADIATION DOSAGE (If Supplied By Facility): CTDIvol = ( 2.01 ) mGy, DLP = ( 67.71 ) mGycm TECHNIQUE: No contrast was administered. Low dose technique was utilized (average mAS-38 and kVp 120). 1.25 mm axial source images with a slice interval of 1.25-mm were reconstructed in lung windows. 2.5 mm axial source images with a slice interval of 2.5-mm were reconstructed in lung windows. 5.0 mm axial source images with a slice interval of 5.0-mm were reconstructed in soft tissue windows. COMPARISON: Comparison is made with prior examination dated February 18, 2022. NODULES: Slight increase in size of the previously seen noncalcified nodule in the peripheral lateral aspect of the left upper lobe as seen on axial image #140. This presently measures 1.27 cm x 1.18 cm. Biopsy or correlation with a PET scan is recommended for further evaluation. Emphysema: Mild degree of emphysematous changes more prominent in the upper lobes. Stable scarring at both lung apices worse on the right side. Endobronchial lesion: None Aorta: Atherosclerotic calcific plaques of the aortic arch. CORONARY ARTERIES: Coronary artery calcification is seen. Heart: Unremarkable Pulmonary artery: Unremarkable Mediastinal nodes: Benign-appearing mediastinal lymph nodes. Other chest and abdominal findings: CT/Low Dose CT Lung Screening IMPRESSION: Lung-RADS category 4B - Chest CT with or without contrast, PET/CT and/or tissue sampling can be obtained depending on the probability of malignancy and comorbidities. IMPORTANT NOTES FOR USE: ACR Lung-RADS Version 1.1 Assessment Categories Release Date: 2018 Category: Coded 0-4 bases on nodule(s) with highest degree of suspicion. Negative screen is defined as categories 1 and 2; a positive screen is defined as categories 3 and 4. Category 3 and 4A nodules that are unchanged on interval CT should be coded as category 2, and individuals returned to screening in 12 months. Category 4X: Category 3 or 4 nodules with additional imaging findings that increase the suspicion of lung cancer, such as spiculation, GGN that doubles in size in 1 year, enlarged lymph notes, etc. Category Modifiers: S (significant finding unrelated to lung cancer) Electronically Signed: Pepe Baires MD at 13:23 EDT ,
== END | disposition home or self-care (01) ==
LOC: CT 15:53
PROVIDERS: PCP Student in an Organized Health Care Education/Training Program; Referring Provider Nurse Practitioner Acute Care; Visit Provider Nurse Practitioner Acute Care
DX: F17.210 Nicotine dependence, cigarettes, uncomplicated (principal)
CPT/HCPCS: 71271

== ENCOUNTER → 2023-02-17 | Outpatient (CLI) | payer MEDICARE, SELFPAY ==
[2023-02-17 12:03] LABS: Platelet Count 323 K/mm3 (150-450)
[2023-02-17 12:13] LABS: International Normalized Ratio 0.9; Partial Thromboplast Time 27.1 Seconds (24.1-36.2); Prothrombin Time (Protime)PT. 12.5 SECONDS (11.7-14.9)
== END | disposition home or self-care (01) ==
LOC: PAVLAB 11:48
PROVIDERS: PCP Student in an Organized Health Care Education/Training Program; Referring Provider Nurse Practitioner Acute Care; Visit Provider Nurse Practitioner Acute Care
DX: I48.91 Unspecified atrial fibrillation (principal); R06.09 Other forms of dyspnea
CPT/HCPCS: 36415; 85049; 85610; 85730

== ENCOUNTER 2023-02-24 07:35 | Outpatient (CLI) | payer MEDICARE, SELFPAY ==
[2023-02-24] VITALS (12 sets, daily range): BP systolic 93–127; BP diastolic 51–83; PULSE 59–73; RESP 15–21; TEMP 36.3; O2SAT 92–98; BMI 23.5
--- NOTE | 2023-02-24 | ASPIGT_PTH ---
PATIENT: ALEX LYNN LOC: [place] U#:[id number] AGE/SX: 62/F ROOM: RE02/24/[address]: ANASTACIA Leon : 1960 BED: DIS: 02/24/2023 SPEC #: [id number] RECD: 02/24/23 10:30 STATUS: AILYN GREGORIO #: [id number] BONI: 02/24/23 00:[address]: Dulce Hawk NP DEPT: SURGICAL PATHOLOGY RECD BY: Bruno Neely ENTERED: 02/24/23 11:39 SP TYPE: ASP RAD OTHR DR: Dr. Nasim Tavarez DO Tissues: Lung, NOS Procedures: FNA Specimen Adequacy Special Stain Group II Surgery Specimen Level IV Imprint (control) HEADER OPERATION: Left lung biopsy PRE-OP DIAGNOSIS: Left lung mass TISSUE SUBMITTED: Left lung mass 20-gauge x1 MICROSCOPIC DIAGNOSIS Left lung mass, CT-guided core biopsy: Nondiagnostic specimen. See comment. DASIA:emi 02/25/2023 COMMENT No specimen is recovered after processing. MICROSCOPIC DESCRIPTION Slides are reviewed. GROSS DESCRIPTION Received in fixative is one container labeled with the patient's name and designated left lung. The specimen consists of a scant amount of soft tissue. The specimen is totally submitted for cell block preparation. / DASIA:emi 02/24/2023 TC: Cannot code CPT: 72217
--- NOTE | 2023-02-24 07:37 | CT_ITS ---
PROCEDURE: CT-guided lung biopsy. DATE: 02/24/2023 INDICATION: 62-year-old female with slight enlargement of the left upper lobe pulmonary nodule. PHYSICIAN: Josh Deluca D.O. MEDICATIONS: 20 cc of 2% lidocaine was administered subcutaneously for local anesthesia. 1 mg of Versed and 50 mcg of fentanyl were utilized for sedation. Sedation start time: 9:28 AM. Sedation stop time: 10:32 AM. BIOPSY NEEDLE: 20 cc Corvocet biopsy needle RADIATION DOSAGE (if supplied): Total exam DLP: 951.99. FINDINGS: The risks, benefits, and alternatives to the procedure were explained to the patient. The specific risks of bleeding, infection, and pneumothorax were detailed and accepted. Witnessed informed consent was obtained. The patient was placed in a supine position in the CT scanner. An initial leaf stripper CT was performed to evaluate for approach of the lesion. A suitable approach was selected. The skin surface was prepared in the usual sterile fashion. 10 cc of local lidocaine was injected utilizing a 25-gauge injection needle and 22-gauge spinal needle for deeper numbing. Prior to placement of the biopsy needle, the patient''s positioning changed, likely due to slight movement and normal variations in breathing with the safest approach to the nodule obscured by the adjacent rib. The patient was repositioned and a new approach was selected. The skin surface was again prepared in the usual sterile fashion. An additional 10 cc of local lidocaine was injected utilizing a 25-gauge injection needle and 22-gauge spinal needle for deeper numbing. A 19-gauge introducer needle was then placed. Due to changes in breathing, movement of the nodule, and movement of the adjacent rib, multiple small adjustments were made within the superficial subcutaneous soft tissues until a suitable and safe approach to the nodule could be made. The introducer needle was then advanced into the nodule utilizing CT fluoroscopic guidance with confirmation of placement within the nodule best seen on series 5, image 123. A biopsy attempt was then made utilizing a 20 cc Corvocet biopsy needle. Minimal fragmented tissue was obtained and given to on-site pathology. The patient then began coughing. Fluoroscopic CT demonstrated development of small amount of adjacent hemorrhage as well as displacement of the needle tip from the nodule. Given the difficulty in placing nodule due to small size, respiratory motion, and location adjacent to the rib and the fissure, decision was made to forego additional biopsy attempt. An immediate postoperative helical CT demonstrated stable small amount of expected postprocedural hemorrhage in the lingula. No pneumothorax was seen. The patient was taken to the recovery bay for observation in stable condition. The patient remained in stable condition throughout observation and recovery. 2 hour postprocedural chest x-ray demonstrated minimal residual hemorrhage in the lingula and no sizable pneumothorax. The patient was discharged home in stable condition. CT/Biopsy/Inj or Needle Placement IMPRESSION: Left upper lobe pulmonary nodule CT-guided biopsy attempt as detailed above. Please note that minimal fragmented tissue was obtained and additional attempts were not made given difficulty in needle placement due to the small size of the nodule and proximity to the rib and adjacent fissure. Although the nodule demonstrates a large central calcification and may relate to a granuloma, given clinical history of smoking and slight increase in size from February 10, 2022 with the nodule now measuring 1.3 cm, previously 1.0 cm, further assessment with a PET/CT is recommended as alternative to biopsy. The above recommendations were discussed with the patient by myself, Dr. Deluca and she will follow-up with ordering pulmonology. Electronically Signed: Josh Deluca MD at 13:54 EDT ,
[2023-02-24] MEDS: 0.9% Saline Lock 10 ML Syringe IV (08:30)
[2023-02-24] MEDS: Midazolam 2 MG/2 ML Syringe IV (09:28)
[2023-02-24] MEDS: fentaNYL 100 MCG/2 ML Ampul IV (09:30)
[2023-02-24] MEDS: Lidocaine 2% (20 ml mdv) 20 ML Vial INFILT (09:35)
--- NOTE | 2023-02-24 12:30 | RAD_ITS ---
INDICATION: 2 hr post lung biopsy EXAMINATION/TECHNIQUE: X-RAY - XR Chest 2 Views COMPARISON: Chest radiograph from 03/09/2022. Low-dose CT lung screening study from 02/09/2023. Same-day CT biopsy of the lungs. FINDINGS: Support devices: None. There is redemonstration of a 1.3 cm round opacity underlying the lateral aspect of the left seventh rib. There is minimal adjacent groundglass opacity which likely relates to trace residual hemorrhage from CT biopsy. No enlargement in degree of hemorrhage. No sizable pleural effusion or pneumothorax. Aeration of the right lung is unchanged. Heart size is stable. Bones and soft tissues are unchanged. RAD/Chest Insp/Exp 2 View IMPRESSION: 1. Minimal groundglass opacity adjacent to the patient''s known 1.3 cm nodule in the left upper lobe likely relates to trace residual hemorrhage from CT biopsy. No enlargement in degree of hemorrhage. 2. The lungs are otherwise clear with no sizable pneumothorax or pleural effusion. Electronically Signed: Josh Deluca MD at 13:15 EDT ,
== END 2023-02-24 23:59 | disposition home or self-care (01) ==
PROVIDERS: PCP Student in an Organized Health Care Education/Training Program; Referring Provider Nurse Practitioner Acute Care; Visit Provider Nurse Practitioner Acute Care
DX: R91.1 Solitary pulmonary nodule (principal)
CPT/HCPCS: 32408; 71046; 77012; 88172; 88305; 88313; 99156; 99157; J7050; A4216

== ENCOUNTER → 2023-03-15 | Outpatient (CLI) | payer MEDICARE, SELFPAY ==
--- NOTE | 2023-03-16 16:02 | PFT ---
INTRODUCTION: The patient is a 62-year-old female who presents for pulmonary function studies secondary to a diagnosis of dyspnea. Respiratory therapy reported good patient effort. Bronchodilators were used during testing. INTERPRETATION: Forced expiration spirometry demonstrates no evidence of a large airways obstructive ventilatory defect. There was no significant response to aerosolized bronchodilators. Spirograms are of good quality and plateau normally. Body plethysmography was performed and revealed lung volumes to be within normal limits. Diffusing capacity by single breath CO was also within normal limits. IMPRESSION: Grossly normal pulmonary function studies.
== END | disposition home or self-care (01) ==
LOC: PSN 10:28
PROVIDERS: PCP Student in an Organized Health Care Education/Training Program; Referring Provider Nurse Practitioner Acute Care; Visit Provider Nurse Practitioner Acute Care
DX: R06.09 Other forms of dyspnea (principal)
CPT/HCPCS: 94060; 94726; 94729

== ENCOUNTER → 2023-06-10 | Outpatient (CLI) | payer MEDICARE, SELFPAY ==
--- NOTE | 2023-06-10 16:32 | CT_ITS ---
EXAM: CT CHEST WITHOUT INTRAVENOUS CONTRAST CLINICAL INDICATION: 1.2 cm peripheral nodule TECHNIQUE: Helically acquired images were obtained of the chest without intravenous contrast. This CT exam was performed using one or more of the following dose reduction techniques: automated exposure control, adjustment of the mA and/or kV according to patient size, and/or use of iterative reconstruction technique. COMPARISON: CT chest, 02/09/2023; 02/18/2022; 05/29/2021 FINDINGS: LUNGS AND PLEURAL SPACES: 1.3 cm left upper lobe pulmonary nodule peripherally abutting the pleura with central calcification as well as with additional satellite pleural-based nodules, similar to the prior examination, the next largest measuring approximately 0.5 cm. Mild centrilobular emphysema. Within the left upper lobe near the pleural nodule, there are a few additional parenchymal nodules, the largest measuring approximately 5 mm which are also unchanged compared to the prior exam. No pneumothorax. HEART: Coronary artery calcifications and/or stents. Heart size is normal. No pericardial effusion. MEDIASTINUM: No significant abnormality. No mediastinal or hilar adenopathy. Esophagus is unremarkable. No hiatal hernia. THYROID: No significant abnormality. No thyroid lesions. BONES/JOINTS: Degenerative changes in the spine. No suspicious lytic or blastic abnormality. VASCULATURE: Atherosclerosis of the aorta and its branch vessels. CT/Chest without Contrast IMPRESSION: 1. ACR Lung CT Screening Reporting And Data System (Lung-RADS) score: 2S - Benign Appearance or Behavior. Additional clinically significant or potentially clinically significant findings are described. Recommend continued annual screening with a low-dose CT (LDCT) in 12 months. 2. For clarification, the 1.3 cm left upper lobe pulmonary nodule has a central calcification. The smaller parenchymal solid nodules measuring no greater than 5 mm. Centrilobular emphysema. Electronically Signed: Shukri Almanza DO at 23:28 EDT ,
== END | disposition home or self-care (01) ==
LOC: CT 16:31
PROVIDERS: PCP Student in an Organized Health Care Education/Training Program; Referring Provider Internal Medicine Critical Care Medicine; Visit Provider Internal Medicine Critical Care Medicine
DX: R91.8 Other nonspecific abnormal finding of lung field (principal)
CPT/HCPCS: 71250

== ENCOUNTER → 2023-12-08 | Outpatient (CLI) | payer MEDICARE, SELFPAY ==
--- NOTE | 2023-12-08 13:39 | CT_ITS ---
INDICATION: follow multiple nodules/mass EXAMINATION: CT CHEST WITHOUT CONTRAST - CT Chest W/O Contrast Injection TECHNIQUE: Helically acquired images were obtained of the chest. A radiation dose optimization technique was used for this scan. IV Contrast dosage and agent: None. RADIATION DOSAGE (If Supplied By Facility): CTDIvol = ( 7.78 ) mGy, DLP = ( 233.63 ) mGycm COMPARISON: Prior study dated: 06/10/2023 FINDINGS: LUNGS, PLEURA AND LARGE AIRWAYS: No significant change in the previously noted 1.3 cm left upper lobe nodule with central calcifications. Additional small subpleural nodules in the left upper lobe measuring up to 5 mm unchanged. 6 mm right lower lobe nodule also unchanged. No new infiltrate or consolidation. No pleural effusion or thickening. No pneumothorax. THYROID: No thyroid lesions. HEART AND PERICARDIUM: Heart size is normal. No pericardial effusion. CORONARY ARTERIES: Coronary artery calcification is seen. VESSELS: Atherosclerotic calcifications and tortuosity of the thoracic aorta without evidence of aneurysm. MEDIASTINUM AND SANTOSH: No mediastinal or hilar adenopathy. Esophagus is unremarkable. Small hiatal hernia. UPPER ABDOMEN: No acute pathology. BONES: No suspicious lytic or blastic abnormality. CT/Chest without Contrast IMPRESSION: 1. No significant change in the previously noted multiple nodules, the largest is in the left upper lobe with central calcifications. 2. No new infiltrate or pleural effusions. 3. Continued follow-up examination with no evidence to CT with low dose CT in 12 months is recommended, lung RADS category 2, benign. Electronically Signed: Alphonse Maria MD at 15:39 EST ,
== END | disposition home or self-care (01) ==
LOC: CT 13:38
PROVIDERS: PCP Student in an Organized Health Care Education/Training Program; Referring Provider Nurse Practitioner Acute Care; Visit Provider Nurse Practitioner Acute Care
DX: R91.8 Other nonspecific abnormal finding of lung field (principal)
CPT/HCPCS: 71250

== ENCOUNTER → 2024-06-28 | Outpatient (CLI) | payer MEDICARE, SELFPAY ==
--- NOTE | 2024-06-28 12:59 | CT_ITS ---
STUDY: CT CHEST WITHOUT CONTRAST REASON FOR EXAM: Female, 63 years old. Follow lung mass in smoker. History of ovarian cancer. RADIATION DOSAGE (If Supplied By Facility): CTDIvol = ( 6.62 ) mGy, DLP = ( 210.33 ) mGycm TECHNIQUE: Transaxial imaging was performed without the administration of intravenous contrast material. Individualized dose optimization techniques were used for this CT. COMPARISON: Comparison is made with prior study December 08, 2023. FINDINGS: CHEST Stable 1.3 cm x 1.1 cm rounded well-defined nodule in the peripheral aspect of the lingular segment of the left upper lobe abutting the left major fissure. A central calcification is seen. Stable 5 mm subpleural nodule in the left upper lobe as well as a 6 mm nodule in the right lower lobe. There is no demonstrated pleural abnormality. There are calcifications of the coronary arteries. Normal mediastinum. Normal hilar regions. Normal unenhanced pulmonary arteries. There is atherosclerotic calcification of the aortic arch. There are multi-level degenerative changes of the thoracic spine. Small hiatal hernia. CT/Chest without Contrast IMPRESSION: Stable examination. Electronically Signed: Pepe Baires MD at 15:07 EDT ,
== END | disposition home or self-care (01) ==
LOC: CT 12:57
PROVIDERS: PCP Student in an Organized Health Care Education/Training Program; Referring Provider Nurse Practitioner Acute Care; Visit Provider Nurse Practitioner Acute Care
DX: R91.8 Other nonspecific abnormal finding of lung field (principal)
CPT/HCPCS: 71250